=== PATIENT | female | born 1970 | race Two or more races ===

== ENCOUNTER 2017-01-15 08:16 | Emergency (ER) | payer OTHER ==
[~2017-01-15] VITALS: Ht 157.5 cm; Wt 89.4 kg
[~2017-01-15 08:16] MED LIST: AMLO5TAB2 PO; BUTA1CAP29 PO; CETI10CA PO; CYCL10TA2 PO; DOXY100T PO; FLUT1DIS3 IH; HYDR-971 PO; LORA0.5T96 PO; METH4TAB PO; NAPR500T3 PO; NAPR500T8 PO; NAPR550T PO; OMEP20CA5 PO; PROAIR HFA8.5 GM IH
[2017-01-15 08:25] VITALS: BP 150/83
--- NOTE | 2017-01-15 08:40 | RAD ---
Left wrist, 3 views, 01/15/2017: History: Fall, pain No fracture or dislocation is identified. There is a cystic area in the lunate bone presumably on a degenerative basis. Mild subcutaneous edema is noted. IMPRESSION: No acute bony abnormality is detected. Left hand, 3 views, 01/15/2017: No fracture or dislocation is identified. There are mild degenerative changes at scattered interphalangeal joints and the first CMC joint.
--- NOTE | 2017-01-15 08:55 | PHYS DOC ---
Past Medical History Past Medical History: Asthma, COPD, GERD Additional Past Medical Histor: hepatitis c, PTSD Past Surgical History: Additional Past Surgical Histo: 5 c-sections, right rotator cuff repair Alcohol Use: None Drug Use: None Adult General Chief Complaint Chief Complaint: WRIST PAIN [facility] HPI Patient is a 46 year old female presents emergency department stating that she was trying to hang pictures and her new house last night when she's felt. She's not sure if she hit her arm on the counter. She is stating that she is having left wrist pain and hand pain. She has decreased range of motion of the wrist. She has good bilingual loan processor noted with the left hand. Peripheral pulses are 2+ cap refill brisk less than 2 seconds. Patient states she has not taken anything for pain and discomfort as it was not hurting until this morning. There does not appear to be any deformity no discoloration noted there does appear to be swelling along the lateral part of the wrist. Patient is right-hand dominant. Review of Systems Review of Systems Constitutional: Denies fever or chills [] Eyes: Denies change in visual acuity, redness, or eye pain [] HENT: Denies nasal congestion or sore throat [] Respiratory: Denies cough or shortness of breath [] Cardiovascular: No additional information not addressed in HPI [] GI: Denies abdominal pain, nausea, vomiting, bloody stools or diarrhea [] : Denies dysuria or hematuria [] Musculoskeletal: Denies back pain. C/o Left wrist pain Integument: Denies rash or skin lesions [] Neurologic: Denies headache, focal weakness or sensory changes [] Allergies Allergies Allergies Coded Allergies Type Severity Reaction Last Updated Verified aspirin Allergy Intermediate itching, hives 09/24/16 No Physical Exam Physical Exam Constitutional: Well developed, well nourished, no acute distress, non-toxic appearance. [] HENT: Normocephalic, atraumatic, bilateral external ears normal, oropharynx moist, no oral exudates, nose normal. [] Eyes: PERRLA, EOMI, conjunctiva normal, no discharge. [] Neck: Normal range of motion, no tenderness, supple, no stridor. [] Cardiovascular:Heart rate regular rhythm, no murmur [] Lungs & Thorax: Bilateral breath sounds clear to auscultation [] Skin: Warm, dry, no erythema, no rash. [] Back: No tenderness Extremities: Left wrist and hand tenderness, no cyanosis, no clubbing, ROM intact, no edema. Peripheral pulses 2+, cap refill brisk less than 2 seconds. Patient with equal bilingual loan processor noted bilaterally. Patient with decreased range of motion of the left wrist. Does appear to have some swelling noted along the lateral part of the wrist. No discoloration, no deformity noted. Neurologic: Alert and oriented X 3, normal motor function, normal sensory function, no focal deficits noted. [] Psychologic: Affect normal, judgement normal, mood normal. [] Current Patient Data Vital Signs Vital Signs Date Time Temp Pulse Resp B/P Pulse Ox O2 Delivery O2 Flow Rate FiO2 01/15/17 08:25 98.5 79 20 97 Room Air 98.5 EKG EKG [] Radiology/Procedures Radiology/Procedures [facility] [address] [place] [address] IMAGING REPORT Signed PATIENT: WILDA EDMONDS ACCOUNT: [id number] : 1970 LOCATION: ER AGE: 46 SEX: F EXAM [id number] STATUS: PRE ER ORD. PHYSICIAN: MARY RUBIN NP REASON: hand and wrist pain after fall yesterday PROCEDURE: HAND LEFT 3V; WRIST 3V LEFT Left wrist, 3 views, 01/15/2017: History: Fall, pain No fracture or dislocation is identified. There is a cystic area in the lunate bone presumably on a degenerative basis. Mild subcutaneous edema is noted. IMPRESSION: No acute bony abnormality is detected. Left hand, 3 views, 01/15/2017: No fracture or dislocation is identified. There are mild degenerative changes at scattered interphalangeal joints and the first CMC joint. IMPRESSION: No acute bony abnormality is detected. DICTATED and SIGNED BY: MARVA SILVA MD DATE: 01/15/17 0835 CC: MARY RUBIN NP; CATE MORRISON [] Course & Med Decision Making Course & Med Decision Making Pertinent Labs and Imaging studies reviewed. (See chart for details) X-rays were negative for any fractures or bony abnormalities per radiology. Patient will placed in an ulnar gutter splint for comfort. With recommendations to follow-up with orthopedic. Patient is instructed to use ice packs on 20 minutes off 20 minutes several times a day. Tylenol and ibuprofen for pain and discomfort. Patient was also instructed to use elevation. Patient agrees with discharge instructions treatment regimens and follow-up recommendations. Since symptoms to return back to emergency department been provided. [] Dragon Disclaimer Dragon Disclaimer This electronic medical record was generated, in whole or in part, using a voice recognition dictation system. Departure Departure Impression: Primary Impression: Left wrist pain Additional Impression: Left hand pain Disposition: HOME, SELF-CARE Condition: STABLE Referrals: CATE MORRISON (PCP) CLINTON COVINGTON II, MD Patient Instructions: Sprain, [id number], Wrist Splint, [id number] Additional Instructions: Your x-rays were negative for any bony abnormalities. Keep the splint in place. Keep the splint clean and dry. Ice packs on 20 minutes off 20 minutes several times a day. Elevation as much as possible. Tylenol or ibuprofen for pain and discomfort. Follow-up with orthopedic in the next week. Return back to emergency prior signs symptoms become worse. Splinting Splinting : Location: left ulna gutter Hand-Made Type: orthoglass Splint: ulnar Pre-Proc Neuro Vasc Exam: normal Post-Proc Neuro Vasc Exam: normal Problem Qualifiers MARY RUBIN NP Jan 15, 2017 08:55
== END 2017-01-15 09:13 | disposition home or self-care (01) ==
LOC: ER 08:16
DX: M25.532 Pain in left wrist (principal); M79.642 Pain in left hand; J44.9 Chronic obstructive pulmonary disease, unspecified; J45.909 Unspecified asthma, uncomplicated; Z88.6 Allergy status to analgesic agent; X58.XXXA Exposure to other specified factors, initial encounter; Y93.89 Activity, other specified; Y92.89 Other specified places as the place of occurrence of the external cause; Y99.2 Volunteer activity
CPT/HCPCS: 29125; 73110; 73130; 99284-25

== ENCOUNTER 2017-03-11 17:55 | Emergency (ER) | payer OTHER ==
[~2017-03-11] VITALS: Ht 157.5 cm; Wt 83.9 kg
[2017-03-11 18:15] VITALS: BP 130/68
[2017-03-11] MEDS ORDERED: METO10TA81 PO (18:28)
--- NOTE | 2017-03-11 18:28 | PHYS DOC ---
Past Medical History Past Medical History: Asthma, COPD, GERD, Hypertension, Hepatitis, Migraines Additional Past Medical Histor: HEP C, PTSD Past Surgical History: Additional Past Surgical Histo: R rotator cuff Alcohol Use: None Drug Use: None Adult General Chief Complaint Chief Complaint: HEADACHE HPI HPI Patient is a 46 year old female presents emergency department stating that she has a migraine headache that started the spotting. She states that she has pressure behind her right eye and has photophobia. She states that she normally has the pressure behind the left eye but today is behind the right. She has not taken anything for the pain and discomfort. She does state she is slightly nauseated but has not vomited. She denies any neurological issues. She does not have a neurologist which she states follows up with. Review of Systems Review of Systems Constitutional: Denies fever or chills [] Eyes: Denies change in visual acuity, redness, or eye pain [] HENT: Denies nasal congestion or sore throat [] Respiratory: Denies cough or shortness of breath [] Cardiovascular: No additional information not addressed in HPI [] GI: Denies abdominal pain, nausea, vomiting, bloody stools or diarrhea [] : Denies dysuria or hematuria [] Musculoskeletal: Denies back pain or joint pain [] Integument: Denies rash or skin lesions [] Neurologic: headache, denies focal weakness or sensory changes [] Current Medications Current Medications Current Medications Medications (Trade) Dose Ordered Sig/Grazyna Start Time Stop Time Status Last Admin Dose Admin Diphenhydramine HCl (Benadryl) 25 mg 1X ONCE 03/11/17 18:30 03/11/17 18:31 DC 03/11/17 18:26 25 MG Ketorolac Tromethamine (Toradol) 10 mg 1X ONCE 03/11/17 18:30 03/11/17 18:31 DC 03/11/17 18:26 10 MG Metoclopramide HCl (Reglan) 10 mg 1X ONCE 03/11/17 18:30 03/11/17 18:31 DC 03/11/17 18:26 10 MG Allergies Allergies Allergies Coded Allergies Type Severity Reaction Last Updated Verified aspirin Allergy Intermediate itching, hives 09/24/16 No Physical Exam Physical Exam Constitutional: Well developed, well nourished, no acute distress, non-toxic appearance. [] HENT: Normocephalic, atraumatic, bilateral external ears normal, oropharynx moist, no oral exudates, nose normal. Bilateral tympanic membranes appear to be normal. Eyes: PERRLA, EOMI, conjunctiva normal, no discharge. [] Neck: Normal range of motion, no tenderness, supple, no stridor. [] Cardiovascular:Heart rate regular rhythm, no murmur [] Lungs & Thorax: Bilateral breath sounds clear to auscultation [] Skin: Warm, dry, no erythema, no rash. [] Back: No tenderness Extremities: No tenderness, no cyanosis, no clubbing, ROM intact, no edema. [] Neurologic: Alert and oriented X 3, normal motor function, normal sensory function, no focal deficits noted. Cranial nerves II through XII intact. Psychologic: Affect normal, judgement normal, mood normal. [] Current Patient Data Vital Signs Vital Signs Date Time Temp Pulse Resp B/P Pulse Ox O2 Delivery O2 Flow Rate FiO2 03/11/17 18:15 97.9 77 18 99 Room Air 97.9 EKG EKG [] Radiology/Procedures Radiology/Procedures [] Course & Med Decision Making Course & Med Decision Making Pertinent Labs and Imaging studies reviewed. (See chart for details) She'll be provided with Toradol here in the emergency department, Suni and Ovidio. 1842 Headache has improved. Patient will be discharged home in stable condition with recommendations to follow-up with her primary care physician in the next 3- 5 days. Since symptoms to return back to emergency department as been provided. Also recommended resting in a quiet dark environment. No TV no cell phone no laptop computers or any type of electronic devices she has a headache. Patient will be discharged home in stable condition patient agrees with discharge instructions treatment regimens and follow-up recommendations. Dragon Disclaimer Dragon Disclaimer This electronic medical record was generated, in whole or in part, using a voice recognition dictation system. Departure Departure Impression: Primary Impression: Headache, migraine Disposition: HOME, SELF-CARE Condition: STABLE Referrals: CATE MORRISON (PCP) Patient Instructions: Migraine Headache, [id number] Additional Instructions: Your being treated for migraine headache. Home to rest in quiet dark environment. Avoid using any type of electronic devices such as watching TV using any cell phone text messaging or any laptops or computer devices. You may take ibuprofen at home for pain and discomfort as well as Benadryl to help with her headache. Medications as prescribed. Follow-up to primary care physician in the next 3-5 days. Return back to emergency prior signs and symptoms of become worse. Scripts Metoclopramide Hcl (Reglan)10 Mg Tablet1 Tab PO TID PRN HEADACHE #30 TAB Take as needed for headahce and nausea and vomiting Prov:MARY RUBIN APRN 03/11/17 MARY RUBIN APRN Mar 11, 2017 18:28
[2017-03-11] MEDS ORDERED: METOCLOPRAMIDE 10 MG TABLET. PO ONE (18:30)
[2017-03-11] MEDS ORDERED: diphenhydrAMINE HCL 25 MG CAPSULE PO ONE (18:30)
[2017-03-11] MEDS ORDERED: KETOROLAC TROMETHAMINE 10 MG TABLET PO ONE (18:30)
== END 2017-03-11 18:41 | disposition home or self-care (01) ==
LOC: ER 17:55
DX: G43.909 Migraine, unspecified, not intractable, without status migrainosus (principal); I10 Essential (primary) hypertension; F43.10 Post-traumatic stress disorder, unspecified; K21.9 Gastro-esophageal reflux disease without esophagitis; J44.9 Chronic obstructive pulmonary disease, unspecified; Z86.19 Personal history of other infectious and parasitic diseases; Z88.6 Allergy status to analgesic agent
CPT/HCPCS: 99284; J8597; Q0163

== ENCOUNTER 2017-03-25 17:15 | Emergency (ER) | payer OTHER ==
[~2017-03-25] VITALS: Ht 157.5 cm; Wt 84.8 kg
[~2017-03-25 17:15] MED LIST changes: +METO10TA81 PO
[2017-03-25 17:28] VITALS: BP 157/88
[2017-03-25] MEDS ORDERED: AMOX1TAB61 PO (18:19)
--- NOTE | 2017-03-25 18:19 | PHYS DOC ---
Past Medical History Past Medical History: Asthma, COPD, Depression, GERD, Hypertension, Hepatitis, Migraines Additional Past Medical Histor: HEP C, PTSD Past Surgical History: Additional Past Surgical Histo: R rotator cuff Alcohol Use: None Drug Use: None Adult General Chief Complaint Chief Complaint: SORE THROAT HPI HPI Patient is a 46 year old female presents emergency department stating that she' s been having a cough congestion sore throat with sinus pressure and discomfort for the last 3-4 days. She denies the cough being productive. She states that it 's a dry cough. She denies any shortness of air difficulty breathing. Denies any fever, chills or nausea vomiting. Review of Systems Review of Systems Constitutional: Denies fever or chills [] Eyes: Denies change in visual acuity, redness, or eye pain [] HENT: nasal congestion and sore throat [] Respiratory: cough denies shortness of breath [] Cardiovascular: No additional information not addressed in HPI [] GI: Denies abdominal pain, nausea, vomiting, bloody stools or diarrhea [] : Denies dysuria or hematuria [] Musculoskeletal: Denies back pain or joint pain [] Integument: Denies rash or skin lesions [] Neurologic: Denies headache, focal weakness or sensory changes [] Endocrine: Denies polyuria or polydipsia [] Allergies Allergies Allergies Coded Allergies Type Severity Reaction Last Updated Verified aspirin Allergy Intermediate itching, hives 09/24/16 No Physical Exam Physical Exam Constitutional: Well developed, well nourished, no acute distress, non-toxic appearance. [] HENT: Normocephalic, atraumatic, bilateral external ears normal, oropharynx moist, no oral exudates, nose normal. Bilateral tympanic membranes appear to be normal. Patient with frontal and maxillary sinus pressure noted. Eyes: PERRLA, EOMI, conjunctiva normal, no discharge. [] Neck: Normal range of motion, no tenderness, supple, no stridor. [] Cardiovascular:Heart rate regular rhythm, no murmur [] Lungs & Thorax: Bilateral breath sounds clear to auscultation [] Skin: Warm, dry, no erythema, no rash. [] Back: No tenderness Extremities: No tenderness, no cyanosis, no clubbing, ROM intact, no edema. [] Neurologic: Alert and oriented X 3, normal motor function, normal sensory function, no focal deficits noted. [] Psychologic: Affect normal, judgement normal, mood normal. [] Current Patient Data Vital Signs Vital Signs Date Time Temp Pulse Resp B/P (MAP) Pulse Ox O2 Delivery O2 Flow Rate FiO2 03/25/17 17:28 98.3 71 18 98 Room Air 98.3 EKG EKG [] Radiology/Procedures Radiology/Procedures [] Course & Med Decision Making Course & Med Decision Making Pertinent Labs and Imaging studies reviewed. (See chart for details) Chest x-ray was negative for any abnormalities per Dr. Nunn. Patient will be placed on Augmentin as she has sinus pressure and discomfort. Recommended Mucinex DM for the cough and congestion. Patient may also take Coricidin HBP. Recommended plenty of fluids. Patient will be discharged home in stable condition signs symptoms to return back to emergency department as been provided. [] Dragon Disclaimer Dragon Disclaimer This electronic medical record was generated, in whole or in part, using a voice recognition dictation system. Departure Departure Impression: Primary Impression: Sinusitis Disposition: 01 HOME, SELF-CARE Condition: STABLE Referrals: CATE MORRISON (PCP) Patient Instructions: Sinusitis, [id number] Additional Instructions: Activity as tolerated. Medication as prescribed Mucinex DM will help with your cough and congestion chart by funnel coater. Coricidin HBP as directed by funnel coater. Drink plenty of fluids. Follow-up the primary care physician in next 3-5 days. Return back to emergency prior signs symptoms of become worse. Scripts Amoxicillin/Potassium Clav (AUGMENTIN 875-125 TABLET) 1 Each Tablet 1 TAB PO BID, #20 TAB Prov: MARY RUBNI APRN 03/25/17 MARY RUBIN PRECIPITATION EQUIPMENT TENDER March 25, 2017 18:19
--- NOTE | 2017-03-26 07:35 | RAD ---
Exam performed: 2 views of the chest. Indication: cough congestion Date of Service:03/25/2017 7:39 PM . Comparison : 2 views chest from 11/28/16 Findings: PA and lateral radiographs of the chest reveal a normal cardiomediastinal contour. The lungs are clear. No pleural fluid is seen. The visualized osseous structures are unremarkable. Impression: Radiographically normal chest.
[2017-03-26 10:00] LABS: NEGATIVE OBC STREP NEG; POSITIVE OBC STREP POS
== END 2017-03-25 18:30 | disposition home or self-care (01) ==
LOC: ER 17:15
DX: J32.1 Chronic frontal sinusitis (principal); J32.0 Chronic maxillary sinusitis; J44.9 Chronic obstructive pulmonary disease, unspecified; F32.9 Major depressive disorder, single episode, unspecified; K21.9 Gastro-esophageal reflux disease without esophagitis; I10 Essential (primary) hypertension; G43.909 Migraine, unspecified, not intractable, without status migrainosus; F43.10 Post-traumatic stress disorder, unspecified; Z86.19 Personal history of other infectious and parasitic diseases; Z88.6 Allergy status to analgesic agent
CPT/HCPCS: 71020; 87070; 87880; 99285-25

== ENCOUNTER 2017-07-07 21:31 | Emergency (ER) | payer OTHER ==
[~2017-07-07] VITALS: Ht 157.5 cm; Wt 85.7 kg
[~2017-07-07 21:31] MED LIST changes: +AMOX1TAB61 PO
[2017-07-07 22:08] VITALS: BP 151/80
[2017-07-07] MEDS ORDERED: DICL50TA4 PO (22:27)
--- NOTE | 2017-07-07 22:28 | PHYS DOC ---
Past Medical History Past Medical History: Asthma, COPD, Depression, GERD, Hypertension, Hepatitis, Migraines Additional Past Medical Histor: HEP C, PTSD Past Surgical History: Additional Past Surgical Histo: R rotator cuff Alcohol Use: None Drug Use: None Adult General Chief Complaint Chief Complaint: HAND PROBLEM HPI HPI Patient is a 47 year old female with a history of hypertension, COPD, asthma, who presents today with mild left hand pain that began yesterday. Patient states her left hand got smashed in a sliding door yesterday. Review of Systems Review of Systems Constitutional: Denies fever or chills [] Musculoskeletal: Left hand pain Integument: Denies rash or skin lesions [] Neurologic: Denies headache, focal weakness or sensory changes [] Allergies Allergies Allergies Coded Allergies Type Severity Reaction Last Updated Verified aspirin Allergy Intermediate itching, hives 09/24/16 No Physical Exam Physical Exam Constitutional: Well developed, well nourished, no acute distress, non-toxic appearance. [] Skin: Warm, dry, no erythema, no rash. [] Back: No tenderness, no CVA tenderness. [] Extremities: Left hand with small amount of soft tissue swelling on the middle finger and index finger proximal phalanx with tenderness to the areas as well. Full range of motion to the left hand and fingers. +2 left radial pulse. Cap refill less than 2 seconds the left fingers. Sensation intact to the left upper extremity. Adequate radial medial and ulnar sensation to the left hand. Neurologic: Alert and oriented X 3, normal motor function, normal sensory function, no focal deficits noted. [] Psychologic: Affect normal, judgement normal, mood normal. [] Current Patient Data Vital Signs Vital Signs Date Time Temp Pulse Resp B/P (MAP) Pulse Ox O2 Delivery O2 Flow Rate FiO2 07/07/17 22:08 97.6 73 18 100 Room Air 97.6 EKG EKG [] Radiology/Procedures Radiology/Procedures [] Course & Med Decision Making Course & Med Decision Making Pertinent Labs and Imaging studies reviewed. (See chart for details) Patient has left hand contusion after her left hand got smashed in a sliding door. Left hand x-rays interpreted by Dr. Hanks are negative for any acute findings. [place] wrap applied to the left hand by me, neurovascular exam done by me is normal. Ice elevation encouraged. Follow-up with Ortho in one week if pain continues. Dragon Disclaimer Dragon Disclaimer This electronic medical record was generated, in whole or in part, using a voice recognition dictation system. Departure Departure Impression: Primary Impression: Contusion of left hand Disposition: HOME, SELF-CARE Condition: STABLE Referrals: CATE MORRISON (PCP) DELMY LOUIE MD follow up in one week Patient Instructions: Contusion, [id number] Additional Instructions: You were seen for left hand contusion. Ice elevate the extremity. Follow-up with the provided orthopedic doctor or your own doctor in 1-2 weeks. Scripts Diclofenac Sodium (DICLOFENAC SODIUM) 50 Mg Tablet.dr 1 TAB PO BID, #30 TAB 0 Refills Prov: ZHANE ARCHER APRN 07/07/17 Problem Qualifiers Primary Impression: Contusion of left hand Encounter type: initial encounter Qualified Codes: S60.222A - Contusion of left hand, initial encounter ZHANE ARCHER APRN Jul 07, 2017 22:27
--- NOTE | 2017-07-08 07:39 | RAD ---
Exam performed:Left hand 3 views. Indication: Injury third and fourth digits. Date of Service:07/07/17 Comparison: X-ray left hand from 01/15/17 Discussion: PA, oblique lateral radiographs of the hand reveal the osseous structures to be intact and well aligned. The joint spaces are well-preserved. The articular margins are smooth. There is mild soft tissue swelling, no definite foreign bodies detected. Impression: Mild soft tissue swelling without underlying bony abnormality..
== END 2017-07-07 22:49 | disposition home or self-care (01) ==
LOC: ER 21:31
DX: S60.222A Contusion of left hand, initial encounter (principal); F43.10 Post-traumatic stress disorder, unspecified; I10 Essential (primary) hypertension; J44.9 Chronic obstructive pulmonary disease, unspecified; K21.9 Gastro-esophageal reflux disease without esophagitis; G43.909 Migraine, unspecified, not intractable, without status migrainosus; Z86.19 Personal history of other infectious and parasitic diseases; Z88.6 Allergy status to analgesic agent; X58.XXXA Exposure to other specified factors, initial encounter; Y93.89 Activity, other specified; Y99.8 Other external cause status; Y92.89 Other specified places as the place of occurrence of the external cause
CPT/HCPCS: 73130; 99284

== ENCOUNTER 2017-11-19 13:12 | Emergency (ER) | payer OTHER | END 2017-11-19 13:51 | disposition home or self-care (01) | LOC: ER 13:12 | DX: J40 Bronchitis, not specified as acute or chronic (principal); I10 Essential (primary) hypertension; J44.9 Chronic obstructive pulmonary disease, unspecified; K21.9 Gastro-esophageal reflux disease without esophagitis; F43.10 Post-traumatic stress disorder, unspecified; G43.909 Migraine, unspecified, not intractable, without status migrainosus; Z88.6 Allergy status to analgesic agent | CPT/HCPCS: 99283 ==

== ENCOUNTER 2018-01-02 12:48 | Emergency (ER) | payer OTHER ==
[2018-01-02] MEDS: diphenhydrAMINE 50 MG/ML VIAL IVP ×2 (13:58)
[2018-01-02] MEDS: PROMETHAZINE 25 MG in IV NORMAL SALINE 50ML 50 ML IV (13:58)
== END 2018-01-02 15:30 | disposition home or self-care (01) ==
LOC: ER 12:48
DX: G43.909 Migraine, unspecified, not intractable, without status migrainosus (principal); J44.9 Chronic obstructive pulmonary disease, unspecified; K21.9 Gastro-esophageal reflux disease without esophagitis; I10 Essential (primary) hypertension; F43.10 Post-traumatic stress disorder, unspecified; Z88.6 Allergy status to analgesic agent
CPT/HCPCS: 96365; 96375; 99284-25; J1200; J2550

== ENCOUNTER 2018-01-17 12:50 | Emergency (ER) | payer OTHER ==
[2018-01-17] MEDS: predniSONE 10 MG TABLET PO (13:49)
[2018-01-17] MEDS: IPRATRPIUM/ALBUTEROL 0.5/2.5MG 3 ML NEBU. NEB (13:57)
== END 2018-01-17 14:35 | disposition home or self-care (01) ==
LOC: ER 12:50
DX: J45.901 Unspecified asthma with (acute) exacerbation (principal); J44.9 Chronic obstructive pulmonary disease, unspecified; K21.9 Gastro-esophageal reflux disease without esophagitis; I10 Essential (primary) hypertension; F43.10 Post-traumatic stress disorder, unspecified; G43.909 Migraine, unspecified, not intractable, without status migrainosus; Z88.6 Allergy status to analgesic agent
CPT/HCPCS: 94640; 99283; J7512; J7620

== ENCOUNTER 2018-04-28 06:10 | Emergency (ER) | payer OTHER ==
[2018-04-28] MEDS ORDERED: KETOROLAC 30 MG/ML INJ. IV (07:00)
[2018-04-28] MEDS ORDERED: METOCLOPRAMIDE HCL 10 MG/2 ML VIAL. IV (07:00)
[2018-04-28] MEDS ORDERED: IV NORMAL SALINE 1000ML BAG 1,000 ML IV (07:00)
[2018-04-28] MEDS ORDERED: diphenhydrAMINE 50 MG/ML VIAL IVP (07:00)
[2018-04-28] MEDS: ACETAMINOPHEN 500 MG TABLET PO (07:27)
[2018-04-28] MEDS: SUMAtriptan SUCCINATE 25 MG TABLET PO (07:27)
[2018-04-28] MEDS: METOCLOPRAMIDE 10 MG TABLET. PO (07:28)
[2018-04-28] MEDS: diphenhydrAMINE HCL 25 MG CAPSULE PO (07:28)
[2018-04-28] MEDS: KETOROLAC 60 MG/2 ML INJ. IM (07:29)
== END 2018-04-28 09:06 | disposition home or self-care (01) ==
LOC: ER 06:10
DX: S90.411A Abrasion, right great toe, initial encounter (principal); L08.9 Local infection of the skin and subcutaneous tissue, unspecified; G43.909 Migraine, unspecified, not intractable, without status migrainosus; X58.XXXA Exposure to other specified factors, initial encounter; Y93.89 Activity, other specified; Y99.8 Other external cause status; Y92.89 Other specified places as the place of occurrence of the external cause
CPT/HCPCS: 96372; 99284-25; J1885; J8597; Q0163

== ENCOUNTER 2018-05-22 18:31 | Emergency (ER) | payer OTHER ==
[2018-05-22] MEDS: IPRATRPIUM/ALBUTEROL 0.5/2.5MG 3 ML NEBU. NEB (19:27)
[2018-05-22] MEDS: predniSONE 20 MG TABLET PO (19:50)
== END 2018-05-22 19:50 | disposition home or self-care (01) ==
LOC: ER 19:50
DX: J45.901 Unspecified asthma with (acute) exacerbation (principal); F32.9 Major depressive disorder, single episode, unspecified; F41.9 Anxiety disorder, unspecified; Z88.6 Allergy status to analgesic agent
CPT/HCPCS: 94640; 99283-25; J7620

== ENCOUNTER 2018-06-13 09:11 | Emergency (ER) | payer OTHER ==
[2018-06-13] MEDS: IV NORMAL SALINE 1000ML BAG 1,000 ML IV (10:31)
[2018-06-13] MEDS: diphenhydrAMINE 50 MG/ML VIAL IVP (10:33)
[2018-06-13] MEDS: KETOROLAC 30 MG/ML INJ. IV (10:35)
[2018-06-13] MEDS: METOCLOPRAMIDE HCL 10 MG/2 ML VIAL. IV (10:37)
[2018-06-13 10:43] LABS: ADD MAN DIFF? NO
[2018-06-13 10:55] LABS: ANION GAP 9 (6-14); BLOOD UREA NITROGEN 13 mg/dL (7-20); BUN/CREATININE RATIO 22 (6-20); CALCIUM 8.9 mg/dL (8.5-10.1); CARBON DIOXIDE 24 mmol/L (21-32); CHLORIDE 102 mmol/L (98-107); CREATININE 0.6 mg/dL (0.6-1.0); GFR 105.8; GLUCOSE 84 mg/dL (70-99); SODIUM 135 mmol/L (136-145)
[2018-06-13 11:01] LABS: ALBUMIN 3.5 g/dL (3.4-5.0); ALBUMIN/GLOBULIN RATIO 0.9 (1.0-1.7); ALK PHOS 86 U/L (46-116); ALT (SGPT) 30 U/L (14-59); AST (SGOT) 29 U/L (15-37); TOTAL BILIRUBIN 0.5 mg/dL (0.2-1.0); TOTAL PROTEIN 7.3 g/dL (6.4-8.2)
[2018-06-13 11:10] LABS: BASO % 1 % (0-3); EOS # 0.4 x10^3/uL (0.0-0.7); EOS % 5 % (0-3); HEMATOCRIT 33.8 % (36.0-47.0); HEMOGLOBIN 10.9 g/dL (12.0-15.5); LYMPH # 1.5 x10^3/uL (1.0-4.8); LYMPH % 22 % (24-48); MEAN CORPUSCULAR HEMOGLOBIN 23 pg (25-35); MEAN CORPUSCULAR HGB CONC 32 g/dL (31-37); MEAN CORPUSCULAR VOLUME 72 fL (79-100); MONO # 0.5 x10^3/uL (0.0-1.1); MONO % 8 % (0-9); NEUT # 4.4 x10^3uL (1.8-7.7); NEUT % 64 % (31-73); PLATELET COUNT 296 x10^3/uL (140-400); RED BLOOD COUNT 4.72 x10^6/uL (3.50-5.40); RED CELL DISTRIBUTION WIDTH 19.2 % (11.5-14.5); WHITE BLOOD COUNT 6.8 x10^3/uL (4.0-11.0)
== END 2018-06-13 12:15 | disposition home or self-care (01) ==
LOC: ER 12:15
DX: G43.909 Migraine, unspecified, not intractable, without status migrainosus (principal); F41.9 Anxiety disorder, unspecified; J44.9 Chronic obstructive pulmonary disease, unspecified; F32.9 Major depressive disorder, single episode, unspecified; Z88.6 Allergy status to analgesic agent
CPT/HCPCS: 36415; 80053; 85025; 96374; 96375; 99284-25; J1200; J1885; J2765; J7030

== ENCOUNTER 2018-08-08 19:47 | Emergency (ER) | payer OTHER ==
[~2018-08-08] VITALS: Ht 157.5 cm; Wt 74.8 kg
[~2018-08-08 19:47] MED LIST changes: +ALBU2.5V14 NEB; -AMLO5TAB2 PO; +AMLO5TAB7 PO; +BENZ100C PO; +BUTA1CAP57 PO; +CEPH-264 PO; +CLAR500T PO; +DICL50TA4 PO; +NAPR-514 PO; +NAPR-682 PO; -NAPR500T3 PO; -NAPR550T PO; +PRED20TA PO; +PRED50TA PO; +PROAIR HFA8.5 GM INH; +PROAIR RESPICL90 MCG IH; +SULF1TAB24 PO
[2018-08-08] MEDS ORDERED: KETOROLAC 30 MG/ML VIAL. IM ONE (20:30)
[2018-08-08] MEDS ORDERED: PROMETHAZINE IM 25 MG/ML VIAL IM ONE (20:30)
--- NOTE | 2018-08-08 20:42 | PHYS DOC ---
Past Medical History Past Medical History: Anxiety, Asthma, COPD, Depression, Migraines Additional Past Medical Histor: HEP C, PTSD Past Surgical History: Additional Past Surgical Histo: R ROTATOR CUFF SX Alcohol Use: None Drug Use: None Adult General Chief Complaint Chief Complaint: HEADACHE HPI HPI Patient is a 48 year old F who reports to ER with complaints of migraine headache. She states this headache is similar to her prior migraines and is associated with nausea, photophobia and dizziness. She is ambulatory in to the ER and denies any weakness in her arms or legs. Review of Systems Review of Systems Constitutional: Denies fever or chills Eyes: Denies change in visual acuity, redness, or eye pain. Reports photophobia. HENT: Denies nasal congestion or sore throat Respiratory: Denies cough or shortness of breath Cardiovascular: Denies chest pain. GI: Denies abdominal pain, vomiting, bloody stools or diarrhea. Reports nausea. Musculoskeletal: Denies back pain or joint pain Integument: Denies rash or skin lesions Neurologic: Denies headache, focal weakness or sensory changes. Endocrine: Denies polyuria or polydipsia All other systems were reviewed and found to be within normal limits, except as documented in this note. Current Medications Current Medications Current Medications Medications (Trade) Dose Ordered Sig/Grazyna Start Time Stop Time Status Last Admin Dose Admin Acetaminophen/ Butalbital/ Caffeine (Fioricet) 2 tab PRN Q6HRS PRN 08/08/18 21:45 08/08/18 21:56 2 TAB Ketorolac Tromethamine (Toradol 30mg Vial) 30 mg 1X ONCE 08/08/18 20:30 08/08/18 20:45 DC 08/08/18 20:58 30 MG Promethazine HCl (Phenergan Im) 25 mg 1X ONCE 08/08/18 20:30 08/08/18 20:45 DC 08/08/18 20:57 25 MG Allergies Allergies Allergies Coded Allergies Type Severity Reaction Last Updated Verified aspirin Allergy Intermediate itching, hives 09/24/16 No Physical Exam Physical Exam Constitutional: Well developed, well nourished, no acute distress, non-toxic appearance. Appears uncomfortable. HENT: Normocephalic, atraumatic, bilateral external ears normal, oropharynx moist, no oral exudates, nose normal. Eyes: PERRLA, EOMI, conjunctiva normal, no discharge. Positive photophobia bilaterally. Neck: Normal range of motion, no tenderness, supple, no stridor. No meningismus. Cardiovascular:Heart rate regular rhythm, no murmur Lungs & Thorax: Bilateral breath sounds clear to auscultation Abdomen: Bowel sounds normal, soft, no tenderness, no masses, no pulsatile masses. Skin: Warm, dry, no erythema, no rash. Back: No tenderness, no CVA tenderness. Extremities: No tenderness, no cyanosis, no clubbing, ROM intact, no edema. Neurologic: Alert and oriented X 3, normal motor function, normal sensory function, no focal deficits noted. Ambulatory without distress. No focal neuro deficits. Psychologic: Affect normal, judgement normal, mood normal. Current Patient Data Vital Signs Vital Signs Date Time Temp Pulse Resp B/P (MAP) Pulse Ox O2 Delivery O2 Flow Rate FiO2 08/08/18 21:56 76 20 08/08/18 20:10 98.0 175/80 (111) 99 Room Air 98.0 EKG EKG [] Radiology/Procedures Radiology/Procedures [] Course & Med Decision Making Course & Med Decision Making Pertinent Labs and Imaging studies reviewed. (See chart for details) Pt feeling better after IM phenergan, IM toradol and 2 PO Fioricet. Discussed rest and follow up with her PCP or neurology. Pt to return if symptoms worsen at anytime. Dragon Disclaimer Dragon Disclaimer This electronic medical record was generated, in whole or in part, using a voice recognition dictation system. Departure Departure Impression: Primary Impression: Headache, migraine Disposition: 01 HOME, SELF-CARE Condition: IMPROVED Referrals: CATE MORRISON (PCP) Patient Instructions: Migraine Headache, [id number] Additional Instructions: Rest, push fluids and follow up with your primary care doctor or neurologist. Scripts Promethazine HCl (Phenergan) 25 Mg Supp.rect 25 MG PO Q12HR for 5 Days, #10 SUPP.RECT Prov: GEORGIE JULIAN 08/08/18 Butalbital/Aspirin/Caffeine (FIORINAL 50-325-40 MG CAPSULE) 1 Each Capsule 1 EACH PO Q6-8HRS PRN for HEADACHE for 7 Days, #20 CAP Prov: GEORGIE JULIAN 08/08/18 Attending Signature Attending Signature I have reviewed the PA/CAR HOPPER's note and plan of care. I was available for consultation as needed during the patient's visit in the emergency department. I agree with the clinical impression, plan, and disposition. GEORGIE JULIAN Aug 08, 2018 20:42 MATHEW LOPEZ DO Aug 09, 2018 03:57
[2018-08-08] MEDS ORDERED: BUTA1CAP31 PO (21:10)
[2018-08-08] MEDS ORDERED: PROM25SU32 PO (21:39)
[2018-08-08] MEDS ORDERED: BUTALB/APAP/CAFEIN 50/325/40MG TABLET. PO PRN (21:45)
[2018-08-08 21:56] VITALS: BP 142/86
== END 2018-08-08 21:56 | disposition home or self-care (01) ==
LOC: ER 19:47
DX: G43.909 Migraine, unspecified, not intractable, without status migrainosus (principal); J44.9 Chronic obstructive pulmonary disease, unspecified; F43.10 Post-traumatic stress disorder, unspecified; F41.9 Anxiety disorder, unspecified; Z88.6 Allergy status to analgesic agent
CPT/HCPCS: 96372; 99284; J1885; J2550

== ENCOUNTER 2018-08-19 14:40 | Emergency (ER) | payer OTHER ==
[~2018-08-19] VITALS: Ht 160 cm; Wt 74.8 kg
[~2018-08-19 14:40] MED LIST changes: +BUTA1CAP31 PO; +PROM25SU32 PO
[2018-08-19 14:57] VITALS: BP 171/79
[2018-08-19] MEDS ORDERED: DEXAMETHASONE SOD PHOS 20 MG/5 ML VIAL. PO ONE (15:00)
[2018-08-19] MEDS ORDERED: ALBUTEROL SULFATE 2.5 MG/3 ML NEBU. NEB ONE (15:00)
[2018-08-19] MEDS ORDERED: ALBU2.5V5 NEB (15:57)
[2018-08-19] MEDS ORDERED: PRED50TA PO (15:57)
[2018-08-19] MEDS ORDERED: BENZ100C PO (15:57)
--- NOTE | 2018-08-19 15:57 | PHYS DOC ---
Past Medical History Past Medical History: Anxiety, Asthma, COPD, Depression, Migraines Additional Past Medical Histor: HEP C, PTSD Past Surgical History: Additional Past Surgical Histo: R ROTATOR CUFF SX Alcohol Use: None Drug Use: None Adult General Chief Complaint Chief Complaint: ASTHMA HPI HPI Patient is a 48 year old female who presents with complaints of a dry cough and shortness of breath since yesterday. Patient states she has a history of COPD and asthma. She felt febrile last night but did not measure her temperature. Patient denies any nausea, vomiting, diarrhea, ear pain, or chest pain. She states that she has had some nasal congestion and a sore throat and addition to her respiratory symptoms. Currently she denies any pain. Review of Systems Review of Systems Constitutional: Reports tactile fever last night Eyes: Denies change in visual acuity, redness, or eye pain reports watery eyes[] HENT: Reports nasal congestion and sore throat [] Respiratory: Reports dry cough and shortness of breath [] Cardiovascular: Denies chest pain GI: Denies abdominal pain, nausea, vomiting, or diarrhea [] Integument: Denies rash or skin lesions [] Neurologic: Denies headache, focal weakness or sensory changes [] All other systems were reviewed and found to be within normal limits, except as documented in this note. Current Medications Current Medications Current Medications Medications (Trade) Dose Ordered Sig/Grazyna Start Time Stop Time Status Last Admin Dose Admin Albuterol Sulfate (Ventolin Neb Soln) 2.5 mg 1X ONCE 08/19/18 15:00 08/19/18 15:01 DC 08/19/18 15:13 2.5 MG Dexamethasone Sodium Phosphate (Decadron) 10 mg 1X ONCE 08/19/18 15:00 08/19/18 15:01 DC 08/19/18 15:03 10 MG Allergies Allergies Allergies Coded Allergies Type Severity Reaction Last Updated Verified aspirin Allergy Intermediate itching, hives 09/24/16 No Physical Exam Physical Exam Constitutional: Well developed, well nourished, no acute distress, non-toxic appearance. [] HENT: Normocephalic, atraumatic, bilateral external ears normal, oropharynx moist, postnasal drainage present with cobblestone appearance of posterior pharynx, mild tenderness with palpation of his, no oral exudates, nose normal. [ ] Eyes: PERRLA, conjunctiva normal, no discharge. [] Neck: Normal range of motion, no tenderness, supple, no stridor. [] Cardiovascular:Heart rate regular rhythm, no murmur [] Lungs & Thorax: Bilateral breath sounds diminished posteriorly with expiratory wheezes scattered throughout Skin: Warm, dry, no erythema, no rash. [] Extremities: No cyanosis, no clubbing, no edema. [] Neurologic: Alert and oriented X 3, normal motor function, normal sensory function, no focal deficits noted. [] Psychologic: Affect normal, judgement normal, mood normal. [] Current Patient Data Vital Signs Vital Signs Date Time Temp Pulse Resp B/P (MAP) Pulse Ox O2 Delivery O2 Flow Rate FiO2 08/19/18 15:14 Room Air 08/19/18 14:57 98.2 97 20 171/79 (109) 99 98.2 EKG EKG [] Radiology/Procedures Radiology/Procedures [] Course & Med Decision Making Course & Med Decision Making Pertinent Labs and Imaging studies reviewed. (See chart for details) Diagnosis: Acute asthma exacerbation, URI Patient was given a breathing treatment in the emergency department 10 mg of by mouth Decadron. Patient's lung sounds improved following the breathing treatment and were clear with occasional scattered wheeze. Patient reports feeling better. Prescription written for Tessalon Perles, albuterol nebulizer vials, and prednisone. Patient verbalized an understanding of home care, medications, follow-up, and return to ED instructions and was in agreement with the plan of care. Staff Physician Addendum: I was working in the ER during the course of this patient's visit. I was available for consultation as needed, but I was not directly involved in the care of this patient. [] Dragon Disclaimer Dragon Disclaimer This electronic medical record was generated, in whole or in part, using a voice recognition dictation system. Departure Departure Impression: Primary Impression: Asthma exacerbation Additional Impression: URI (upper respiratory infection) Disposition: 01 HOME, SELF-CARE Condition: STABLE Referrals: CATE MORRISON (PCP) Patient Instructions: Asthma, Adult, [id number] Additional Instructions: Fill prescription(s) and use as directed. Tylenol or ibuprofen prn pain/fever. Increase clear fluids. Avoid triggers such as smoke, fragrance, dust, and pollen. Follow-up with your primary care doctor next week. Return to the emergency room if your symptoms worsen. Scripts Prednisone (PREDNISONE) 50 Mg Tablet 1 TAB PO DAILY, #5 TAB 0 Refills start this medication on 08/20/18 Prov: STEPHANIE GUEVARA APRN 08/19/18 Albuterol Sulfate (ALBUTEROL SULFATE NEB SOLN) 2.5 Mg/3 Ml Vial.neb 1 VIAL NEB PRN Q4HRS PRN for SHORTNESS OF BREATH, #50 VIAL 0 Refills Prov: STEPHANIE GUEVARA APRN 08/19/18 Benzonatate (TESSALON PERLE) 100 Mg Capsule 1 CAP PO TID, #21 CAP 0 Refills Prov: STEPHANIE GUEVARA APRN 08/19/18 Problem Qualifiers Primary Impression: Asthma exacerbation Asthma severity: mild Asthma persistence: intermittent Qualified Codes: J45.21 - Mild intermittent asthma with (acute) exacerbation Additional Impression: URI (upper respiratory infection) URI type: unspecified URI Qualified Codes: J06.9 - Acute upper respiratory infection, unspecified STEPHANIE GUEVARA APRN Aug 19, 2018 15:57 LUIS ENRIQUE DANG MD Aug 19, 2018 18:00
== END 2018-08-19 16:02 | disposition home or self-care (01) ==
LOC: ER 14:40
DX: J45.901 Unspecified asthma with (acute) exacerbation (principal); J06.9 Acute upper respiratory infection, unspecified; J44.9 Chronic obstructive pulmonary disease, unspecified; G43.909 Migraine, unspecified, not intractable, without status migrainosus; F41.9 Anxiety disorder, unspecified; F32.9 Major depressive disorder, single episode, unspecified; F43.10 Post-traumatic stress disorder, unspecified; Z86.19 Personal history of other infectious and parasitic diseases; Z88.6 Allergy status to analgesic agent
CPT/HCPCS: 94640; 99283; J1100; J7613

== ENCOUNTER 2018-08-28 22:14 | Emergency (ER) | payer OTHER ==
[~2018-08-28] VITALS: Ht 157.5 cm; Wt 74.8 kg
[~2018-08-28 22:14] MED LIST changes: +ALBU2.5V5 NEB
[2018-08-28 22:20] VITALS: BP 154/72
[2018-08-28] MEDS ORDERED: PRED50TA PO (22:42)
--- NOTE | 2018-08-28 22:43 | PHYS DOC ---
Past Medical History Past Medical History: Anxiety, Asthma, COPD, Depression, Migraines Additional Past Medical Histor: HEP C, PTSD Past Surgical History: Additional Past Surgical Histo: R ROTATOR CUFF SX Alcohol Use: None Drug Use: None Adult General Chief Complaint Chief Complaint: ASTHMA HPI HPI Patient is a 48 year old female who presents with asthma exacerbation. Patient states that she took a 50 mg prednisone tablets from an old prescription 2 weeks ago today and did 2 breathing treatments one this morning and one at 4:00 this afternoon. Patient still has mild end expiratory wheezes and says she's just not completely clear. Patient has no acute complaints at this time. Review of Systems Review of Systems Constitutional: Denies fever or chills [] Eyes: Denies change in visual acuity, redness, or eye pain [] HENT: Denies nasal congestion or sore throat [] Respiratory: Denies cough or shortness of breath, positive for wheezes [] Cardiovascular: No additional information not addressed in HPI [] GI: Denies abdominal pain, nausea, vomiting, bloody stools or diarrhea [] : Denies dysuria or hematuria [] Musculoskeletal: Denies back pain or joint pain [] Integument: Denies rash or skin lesions [] Neurologic: Denies headache, focal weakness or sensory changes [] Endocrine: Denies polyuria or polydipsia [] All other systems were reviewed and found to be within normal limits, except as documented in this note. Current Medications Current Medications Current Medications Medications (Trade) Dose Ordered Sig/Grazyna Start Time Stop Time Status Last Admin Dose Admin Albuterol Sulfate (Ventolin Neb Soln) 2.5 mg 1X ONCE 08/28/18 23:00 08/28/18 23:01 DC 08/28/18 22:39 2.5 MG Albuterol/ Ipratropium (Duoneb) 3 ml 1X ONCE 08/28/18 23:30 08/28/18 23:31 DC 08/28/18 23:39 3 ML Allergies Allergies Allergies Coded Allergies Type Severity Reaction Last Updated Verified aspirin Allergy Intermediate itching, hives 09/24/16 No Physical Exam Physical Exam Constitutional: Well developed, well nourished, no acute distress, non-toxic appearance. [] HENT: Normocephalic, atraumatic, bilateral external ears normal, oropharynx moist, no oral exudates, nose normal. [] Eyes: PERRLA, EOMI, conjunctiva normal, no discharge. [] Neck: Normal range of motion, no tenderness, supple, no stridor. [] Cardiovascular:Heart rate regular rhythm, no murmur [] Lungs & Thorax: Bilateral breath sounds with end expiratory wheezes[] Abdomen: Bowel sounds normal, soft, no tenderness, no masses, no pulsatile masses. [] Skin: Warm, dry, no erythema, no rash. [] Back: No tenderness, no CVA tenderness. [] Extremities: No tenderness, no cyanosis, no clubbing, ROM intact, no edema. [] Neurologic: Alert and oriented X 3, normal motor function, normal sensory function, no focal deficits noted. [] Psychologic: Affect normal, judgement normal, mood normal. [] Current Patient Data Vital Signs Vital Signs Date Time Temp Pulse Resp B/P (MAP) Pulse Ox O2 Delivery O2 Flow Rate FiO2 08/28/18 22:20 98.0 83 22 154/72 (99) 98 Room Air 98.0 EKG EKG [] Radiology/Procedures Radiology/Procedures [] Course & Med Decision Making Course & Med Decision Making Pertinent Labs and Imaging studies reviewed. (See chart for details) Patient with improvement after 2 treatments and just requested a work excuse for tomorrow and felt comfortable going home at this time. [] Dragon Disclaimer Dragon Disclaimer This electronic medical record was generated, in whole or in part, using a voice recognition dictation system. Departure Departure Impression: Primary Impression: Asthma exacerbation Disposition: 01 HOME, SELF-CARE Condition: IMPROVED Referrals: CATE MORRISON (PCP) Patient Instructions: Asthma, Adult, [id number] Scripts Prednisone (PREDNISONE) 50 Mg Tablet 1 TAB PO DAILY, #3 TAB Prov: YOSSI MCDOWELL MD 08/28/18 YOSSI MCDOWELL MD Aug 28, 2018 22:43
[2018-08-28] MEDS ORDERED: ALBUTEROL SULFATE 2.5 MG/3 ML NEBU. NEB ONE (23:00)
[2018-08-28] MEDS ORDERED: IPRATRPIUM/ALBUTEROL 0.5/2.5MG 3 ML NEBU. NEB ONE (23:30)
== END 2018-08-29 00:24 | disposition home or self-care (01) ==
LOC: ER 22:14
DX: J45.901 Unspecified asthma with (acute) exacerbation (principal); J44.9 Chronic obstructive pulmonary disease, unspecified; G43.909 Migraine, unspecified, not intractable, without status migrainosus; F43.10 Post-traumatic stress disorder, unspecified; Z88.6 Allergy status to analgesic agent
CPT/HCPCS: 94640; 99284; J7613; J7620

== ENCOUNTER 2018-09-25 09:05 | Emergency (ER) | payer SELFPAY ==
[~2018-09-25] VITALS: Ht 157.5 cm; Wt 74.8 kg
[2018-09-25 09:13] VITALS: BP 156/74
[2018-09-25] MEDS ORDERED: IV NORMAL SALINE 1000ML BAG 1,000 ML IV ONE (09:15)
[2018-09-25] MEDS ORDERED: METOCLOPRAMIDE HCL 10 MG/2 ML VIAL. IV ONE (09:15)
[2018-09-25] MEDS ORDERED: KETOROLAC 30 MG/ML VIAL. IV ONE (09:15)
--- NOTE | 2018-09-25 10:32 | PHYS DOC ---
Past Medical History Past Medical History: Anxiety, Asthma, COPD, Depression, Migraines Additional Past Medical Histor: HEP C, PTSD Past Surgical History: Additional Past Surgical Histo: R ROTATOR CUFF SX Alcohol Use: None Drug Use: None Adult General Chief Complaint Chief Complaint: HEADACHE HPI HPI Patient is a 48 year old female who presents with a headache that has worsened as the day has progressed today. The patient states that she is a chronic migraine sufferer (similar to her normal headaches. She denies loss of vision or paresthesias. She has not taken any of OTC medications. She denies vomiting but does have mild nausea. Review of Systems Review of Systems Constitutional: Denies fever or chills [] Eyes: Denies change in visual acuity, redness, or eye pain [] HENT: Denies nasal congestion or sore throat [] Respiratory: Denies cough or shortness of breath [] Cardiovascular: No additional information not addressed in HPI [] GI: Denies abdominal pain, nausea, vomiting, bloody stools or diarrhea [] : Denies dysuria or hematuria [] Musculoskeletal: Denies back pain or joint pain [] Integument: Denies rash or skin lesions [] Neurologic: See history of present illness Endocrine: Denies polyuria or polydipsia [] All other systems were reviewed and found to be within normal limits, except as documented in this note. Current Medications Current Medications Current Medications Medications (Trade) Dose Ordered Sig/[facility] Start Time Stop Time Status Last Admin Dose Admin Ketorolac Tromethamine (Toradol 30mg Vial) 30 mg 1X ONCE 09/25/18 09:15 09/25/18 09:23 DC 09/25/18 09:38 30 MG Metoclopramide HCl (Reglan Vial) 10 mg 1X ONCE 09/25/18 09:15 09/25/18 09:23 DC 09/25/18 09:38 10 MG Sodium Chloride 1,000 ml @ 1,000 mls/hr 1X ONCE 09/25/18 09:15 09/25/18 10:14 DC 09/25/18 09:37 1,000 MLS/HR Allergies Allergies Allergies Coded Allergies Type Severity Reaction Last Updated Verified aspirin Allergy Intermediate itching, hives 09/24/16 No Physical Exam Physical Exam Constitutional: Well developed, well nourished, no acute distress, non-toxic appearance. [] HENT: Normocephalic, atraumatic, bilateral external ears normal, oropharynx moist, no oral exudates, nose normal. [] Eyes: PERRLA, EOMI, conjunctiva normal, no discharge. [] Neck: Normal range of motion, no tenderness, supple, no stridor. [] Cardiovascular:Heart rate regular rhythm, no murmur [] Lungs & Thorax: Bilateral breath sounds clear to auscultation [] Abdomen: Bowel sounds normal, soft, no tenderness, no masses, no pulsatile masses. [] Skin: Warm, dry, no erythema, no rash. [] Back: No tenderness, no CVA tenderness. [] Extremities: No tenderness, no cyanosis, no clubbing, ROM intact, no edema. [] Neurologic: Alert and oriented X 3, normal motor function, normal sensory function, no focal deficits noted, cranial nerves II through XII are grossly intact. [] Psychologic: Affect normal, judgement normal, mood normal. [] Current Patient Data Vital Signs Vital Signs Date Time Temp Pulse Resp B/P (MAP) Pulse Ox O2 Delivery O2 Flow Rate FiO2 09/25/18 09:13 98.1 74 18 156/74 (101) 97 Room Air 98.1 EKG EKG [] Radiology/Procedures Radiology/Procedures [] Course & Med Decision Making Course & Med Decision Making Pertinent Labs and Imaging studies reviewed. (See chart for details) []The patient was given a bolus of normal saline, Toradol and Reglan in the emergency department with resolution of her headache. Staff Physician Addendum: I was working in the ER during the course of this patient's visit. I was available for consultation as needed, but I was not directly involved in the care of this patient. Dragon Disclaimer Dragon Disclaimer This electronic medical record was generated, in whole or in part, using a voice recognition dictation system. Departure Departure Impression: Primary Impression: Migraine Disposition: 01 HOME, SELF-CARE Condition: STABLE Referrals: CATE MORRISON (PCP) Patient Instructions: Migraine Headache Additional Instructions: The medication you were given may make you sleepy. Continue your at home routine. Do not drive or operate heavy machinery today. Follow-up with your primary care provider for future healthcare needs or return to the emergency department if worsening. CORDELL CHAVEZ [employer] Sep 25, 2018 10:31 LUIS ENRIQUE DANG MD Sep 25, 2018 16:57
== END 2018-09-25 10:40 | disposition home or self-care (01) ==
LOC: ER 09:05
DX: G43.909 Migraine, unspecified, not intractable, without status migrainosus (principal); F41.9 Anxiety disorder, unspecified; F32.9 Major depressive disorder, single episode, unspecified; J44.9 Chronic obstructive pulmonary disease, unspecified; Z98.890 Other specified postprocedural states; Z88.6 Allergy status to analgesic agent
CPT/HCPCS: 96374; 96375; 99284; J1885; J2765; J7030

== ENCOUNTER 2018-10-10 08:27 | Emergency (ER) | payer SELFPAY ==
[~2018-10-10] VITALS: Ht 157.5 cm; Wt 74.8 kg
[~2018-10-10 08:27] MED LIST changes: +HYDR-3164 PO; -HYDR-971 PO
[2018-10-10 08:49] VITALS: BP 153/74
[2018-10-10] MEDS ORDERED: predniSONE 10 MG TABLET PO ONE (09:15)
[2018-10-10] MEDS ORDERED: ALBUTEROL SULFATE 2.5 MG/3 ML NEBU. CONT NEB ONE (09:15)
[2018-10-10] MEDS ORDERED: PRED50TA PO (10:48)
[2018-10-10] MEDS ORDERED: PROAIR HFA8.5 GM INH (10:48)
--- NOTE | 2018-10-10 10:48 | PHYS DOC ---
Past Medical History Past Medical History: Anxiety, Asthma, COPD, Depression, Migraines, Other Additional Past Medical Histor: HEP C, PTSD Past Surgical History: Additional Past Surgical Histo: R ROTATOR CUFF SX Alcohol Use: None Drug Use: None Adult General Chief Complaint Chief Complaint: ASTHMA HPI HPI Patient is a 48 year old [f__sex] who presents with [] Review of Systems Review of Systems Constitutional: Denies fever or chills [] Eyes: Denies change in visual acuity, redness, or eye pain [] HENT: Denies nasal congestion or sore throat [] Respiratory: Denies cough or shortness of breath [] Cardiovascular: No additional information not addressed in HPI [] GI: Denies abdominal pain, nausea, vomiting, bloody stools or diarrhea [] : Denies dysuria or hematuria [] Musculoskeletal: Denies back pain or joint pain [] Integument: Denies rash or skin lesions [] Neurologic: Denies headache, focal weakness or sensory changes [] Endocrine: Denies polyuria or polydipsia [] All other systems were reviewed and found to be within normal limits, except as documented in this note. Current Medications Current Medications Current Medications Medications (Trade) Dose Ordered Sig/Grazyna Start Time Stop Time Status Last Admin Dose Admin Albuterol Sulfate (Ventolin Neb Soln) 10 mg 1X ONCE 10/10/18 09:15 10/10/18 09:16 DC 10/10/18 09:14 10 MG Prednisone (Prednisone) 50 mg 1X ONCE 10/10/18 09:15 10/10/18 09:16 DC 10/10/18 09:16 50 MG Allergies Allergies Allergies Coded Allergies Type Severity Reaction Last Updated Verified aspirin Allergy Intermediate itching, hives 09/24/16 No Physical Exam Physical Exam Constitutional: Well developed, well nourished, no acute distress, non-toxic appearance. [] HENT: Normocephalic, atraumatic, bilateral external ears normal, oropharynx moist, no oral exudates, nose normal. [] Eyes: PERRLA, EOMI, conjunctiva normal, no discharge. [] Neck: Normal range of motion, no tenderness, supple, no stridor. [] Cardiovascular:Heart rate regular rhythm, no murmur [] Lungs & Thorax: Bilateral breath sounds clear to auscultation [] Abdomen: Bowel sounds normal, soft, no tenderness, no masses, no pulsatile masses. [] Skin: Warm, dry, no erythema, no rash. [] Back: No tenderness, no CVA tenderness. [] Extremities: No tenderness, no cyanosis, no clubbing, ROM intact, no edema. [] Neurologic: Alert and oriented X 3, normal motor function, normal sensory function, no focal deficits noted. [] Psychologic: Affect normal, judgement normal, mood normal. [] Current Patient Data Vital Signs Vital Signs Date Time Temp Pulse Resp B/P (MAP) Pulse Ox O2 Delivery O2 Flow Rate FiO2 10/10/18 09:19 98 Room Air 10/10/18 08:49 98.0 78 24 153/74 (100) 98.0 EKG EKG [] Radiology/Procedures Radiology/Procedures [] Course & Med Decision Making Course & Med Decision Making Pertinent Labs and Imaging studies reviewed. (See chart for details) [] Dragon Disclaimer Dragon Disclaimer This electronic medical record was generated, in whole or in part, using a voice recognition dictation system. Departure Departure Impression: Primary Impression: Asthma exacerbation Disposition: 01 HOME, SELF-CARE Condition: STABLE Referrals: CATE MORRISON (PCP) Patient Instructions: Asthma Prevention-Brief Additional Instructions: Take the medication with food. Follow-up with your primary care provider for recheck in 3 days if not improving or return to the emergency department if worsening. Scripts Albuterol Sulfate (PROAIR HFA INHALER) 8.5 Gm Hfa.aer.ad 1 PUFF INH PRN Q6HRS PRN for SHORTNESS OF BREATH, #1 INHALER 3 Refills Prov: CORDELL CHAVEZ APRN 10/10/18 Prednisone (PREDNISONE) 50 Mg Tablet 1 TAB PO DAILY for asthma, #5 TAB Prov: CORDELL CHAVEZ APRN 10/10/18 CORDELL CHAVEZ APRN Oct 10, 2018 10:48
== END 2018-10-10 11:02 | disposition home or self-care (01) ==
LOC: ER 08:27
DX: J45.901 Unspecified asthma with (acute) exacerbation (principal); J44.9 Chronic obstructive pulmonary disease, unspecified; F41.9 Anxiety disorder, unspecified; F32.9 Major depressive disorder, single episode, unspecified; G43.909 Migraine, unspecified, not intractable, without status migrainosus; Z98.890 Other specified postprocedural states; Z88.6 Allergy status to analgesic agent
CPT/HCPCS: 94644; 99285; J7512; J7613; 94640; 99284-25

== ENCOUNTER 2018-11-06 19:55 | Emergency (ER) | payer SELFPAY ==
[~2018-11-06] VITALS: Ht 157.5 cm; Wt 74.8 kg
[~2018-11-06 19:55] MED LIST changes: +ALBU2.5V8 IH; +ALBU2.5V8 INH; -PROAIR HFA8.5 GM IH; -PROAIR HFA8.5 GM INH
[2018-11-06] MEDS ORDERED: ALBUTEROL SULFATE 2.5 MG/3 ML NEBU. NEB ONE (21:00)
[2018-11-06] MEDS ORDERED: DEXAMETHASONE SOD PHOS 20 MG/5 ML VIAL. PO ONE (21:00)
[2018-11-06] MEDS ORDERED: IPRATRPIUM/ALBUTEROL 0.5/2.5MG 3 ML NEBU. NEB ONE (21:00)
[2018-11-06] MEDS ORDERED: DOXY100C14 PO (22:14)
[2018-11-06] MEDS ORDERED: PRED50TA PO (22:14)
--- NOTE | 2018-11-06 22:14 | PHYS DOC ---
Past Medical History Past Medical History: Anxiety, Asthma, COPD, Depression, Hypertension, Migraines, Other Additional Past Medical Histor: HEP C, PTSD Past Surgical History: Additional Past Surgical Histo: R ROTATOR CUFF SX Alcohol Use: None Drug Use: None Adult General Chief Complaint Chief Complaint: SHORTNESS OF BREATH [facility] HPI Patient is a 48 year old female who presents with a complaint of feeling short of breath since 7:30 this morning. She reports a history of asthma and COPD. States that she has tried using her inhaler at home with no relief of her symptoms. She last used her inhaler one hour prior to arrival. She denies any fever, nasal congestion, chest pain, nausea, vomiting, abdominal pain, ear pain , sore throat, or fever. Currently she reports that the pain is in the left ribs and left back and she rates the discomfort a 7 out of 10 on the pain scale. Review of Systems Review of Systems Constitutional: Denies fever or chills [] Eyes: Denies change in visual acuity, HENT: Denies nasal congestion or sore throat [] Respiratory: See history of present illness Cardiovascular: No additional information not addressed in HPI [] GI: Denies abdominal pain, nausea, vomiting, or diarrhea [] Musculoskeletal: See history of present illness Integument: Denies rash or skin lesions [] Neurologic: Denies headache, focal weakness or sensory changes [] All other systems were reviewed and found to be within normal limits, except as documented in this note. Current Medications Current Medications Current Medications Medications (Trade) Dose Ordered Sig/Grazyna Start Time Stop Time Status Last Admin Dose Admin Albuterol Sulfate (Ventolin Neb Soln) 2.5 mg 1X ONCE 11/06/18 21:00 11/06/18 21:01 DC 11/06/18 21:16 2.5 MG Albuterol/ Ipratropium (Duoneb) 3 ml 1X ONCE 11/06/18 21:00 11/06/18 21:01 DC 11/06/18 21:10 3 ML Dexamethasone Sodium Phosphate (Decadron) 10 mg 1X ONCE 11/06/18 21:00 11/06/18 21:01 DC 11/06/18 21:12 10 MG Allergies Allergies Allergies Coded Allergies Type Severity Reaction Last Updated Verified aspirin Allergy Intermediate itching, hives 09/24/16 No Physical Exam Physical Exam Constitutional: Well developed, well nourished, no acute distress, ill appearance. [] HENT: Normocephalic, atraumatic, bilateral external ears normal, bilateral TMs are normal, posterior pharynx is normal, oropharynx moist, no oral exudates, nose normal. [] Eyes: conjunctiva normal, no discharge. [] Neck: Normal range of motion, no tenderness, supple, no stridor. [] Cardiovascular:Heart rate regular rhythm, no murmur [] Lungs & Thorax: Bilateral breath sounds rhonchi with expiratory wheezes and diminished in the bases bilaterally Skin: Warm, dry, no erythema, no rash. [] Extremities: No cyanosis, no clubbing, ROM intact, Neurologic: Alert and oriented X 3, normal motor function, normal sensory function, no focal deficits noted. [] Psychologic: Affect normal, judgement normal, mood normal. [] Current Patient Data Vital Signs Vital Signs Date Time Temp Pulse Resp B/P (MAP) Pulse Ox O2 Delivery O2 Flow Rate FiO2 11/06/18 22:35 85 18 156/87 (110) 98 Room Air 11/06/18 20:20 99.4 99.4 EKG EKG [] Radiology/Procedures Radiology/Procedures bilateral lower lobe pneumonia read by Dr. Lopez[] Breath Sounds were clear in all arvizu with occasional scattered expiratory wheezes after breathing treatment; patient reported feeling better. Staff Physician Addendum: I was working in the ER during the course of this patient's visit. I was available for consultation as needed, but I was not directly involved in the care of this patient. Course & Med Decision Making Course & Med Decision Making Pertinent Labs and Imaging studies reviewed. (See chart for details) [] Dragon Disclaimer Dragon Disclaimer This electronic medical record was generated, in whole or in part, using a voice recognition dictation system. Departure Departure Impression: Primary Impression: CAP (community acquired pneumonia) Disposition: 01 HOME, SELF-CARE Condition: STABLE Referrals: CATE MORRISON (PCP) Patient Instructions: Pneumonia, Adult Additional Instructions: Fill prescription(s) and use as directed. Tylenol or ibuprofen prn pain/fever. Increase clear fluids. Avoid triggers such as smoke, fragrance, dust, and pollen. May take OTC cough suppressants as needed. Follow-up with your primary care doctor next week, return to the ER if her symptoms worsen. Scripts Prednisone (PREDNISONE) 50 Mg Tablet 1 TAB PO DAILY, #4 TAB 0 Refills start taking on 11/07/18 Prov: STEPHANIE GUEVARA APRN 11/06/18 Doxycycline Monohydrate (DOXYCYCLINE MONOHYDRATE) 100 Mg Capsule 1 CAP PO BID, #20 CAP Prov: STEPHANIE GUEVARA APRN 11/06/18 Problem Qualifiers Primary Impression: CAP (community acquired pneumonia) Laterality: unspecified laterality Qualified Codes: J18.9 - Pneumonia, unspecified organism STEPHANIE GUEVARA APRN Nov 06, 2018 22:14 LUIS ENRIQUE LOPEZ MD Nov 07, 2018 05:29
[2018-11-06 22:35] VITALS: BP 156/87
--- NOTE | 2018-11-06 23:43 | RAD ---
Examination: CHEST PA LATERAL History: cough, soa Comparison/Correlation: None Findings: PA and lateral views of chest were obtained. Heart size and pulmonary vasculature are normal. No infiltrate or pleural effusion. Minimal right apical pleural thickening. Osteopenia noted. Impression: No active disease. Electronically signed by: Chapin Amaral MD (11/06/2018 11:39 PM) [facility]
== END 2018-11-06 22:55 | disposition home or self-care (01) ==
LOC: ER 19:55
DX: J18.9 Pneumonia, unspecified organism (principal); J44.9 Chronic obstructive pulmonary disease, unspecified; F41.9 Anxiety disorder, unspecified; F32.9 Major depressive disorder, single episode, unspecified; I10 Essential (primary) hypertension; G43.909 Migraine, unspecified, not intractable, without status migrainosus; F43.10 Post-traumatic stress disorder, unspecified; Z88.6 Allergy status to analgesic agent
CPT/HCPCS: 71046; 94640; 99284; J1100; J7613; J7620

== ENCOUNTER 2019-01-28 18:59 | Emergency (ER) | payer SELFPAY ==
[~2019-01-28] VITALS: Ht 165.1 cm; Wt 86.2 kg
[~2019-01-28 18:59] MED LIST changes: +AMLO5TAB10 PO; -AMLO5TAB7 PO; +DOXY100C14 PO
[2019-01-28 19:19] VITALS: BP 158/81
[2019-01-28 19:47] LABS: BILIRUBIN,URINE SMALL (NEG); CLARITY,URINE CLOUDY; COLOR,URINE YELLOW; NITRITE,URINE POSITIVE (NEG); PH,URINE 5.5; PROTEIN,URINE 30 mg/dL (NEG-TRACE)
[2019-01-28 20:04] LABS: BACTERIA,URINE MANY /HPF (0-FEW); HYALINE CASTS, URINE MANY /HPF; SQUAMOUS EPITHELIAL CELL,UR MOD /LPF; WBC,URINE >40 /HPF (0-4)
[2019-01-28 20:56] LABS: CALCIUM 8.9 mg/dL (8.5-10.1); CREATININE 0.6 mg/dL (0.6-1.0); GFR 105.8; POTASSIUM 3.8 mmol/L (3.5-5.1)
--- NOTE | 2019-01-28 20:59 | RAD ---
EXAM: AP View of the chest DATE: 01/28/2019 8:12 PM INDICATION: S/P EDEMA COMPARISON: 11/06/2018, 03/25/2017 FINDINGS: The heart is top normal in size. No lobar consolidation. Bilateral interstitial prominence is seen. Trace right pleural effusion. No pneumothorax. IMPRESSION: Trace right pleural effusion with interstitial prominence possibly pulmonary edema. Alternatively atypical infection may have similar appearance. Electronically signed by: Dewayne Johansen MD (01/28/2019 8:56 PM) [facility]
[2019-01-28 21:02] LABS: ALBUMIN 3.2 g/dL (3.4-5.0); ALBUMIN/GLOBULIN RATIO 0.8 (1.0-1.7); TOTAL BILIRUBIN 0.2 mg/dL (0.2-1.0); TOTAL PROTEIN 7.2 g/dL (6.4-8.2)
[2019-01-28 21:22] LABS: BASO # 0.1 x10^3/uL (0.0-0.2); BASO % 1 % (0-3); EOS # 0.7 x10^3/uL (0.0-0.7); EOS % 10 % (0-3); HEMATOCRIT 31.5 % (36.0-47.0); HEMOGLOBIN 9.9 g/dL (12.0-15.5); LYMPH % 26 % (24-48); MEAN CORPUSCULAR HEMOGLOBIN 22 pg (25-35); MEAN CORPUSCULAR HGB CONC 32 g/dL (31-37); MEAN CORPUSCULAR VOLUME 69 fL (79-100); MONO # 0.5 x10^3/uL (0.0-1.1); MONO % 7 % (0-9); NEUT # 4.3 x10^3uL (1.8-7.7); NEUT % 57 % (31-73); PLATELET COUNT 252 x10^3/uL (140-400); RED CELL DISTRIBUTION WIDTH 20.9 % (11.5-14.5); WHITE BLOOD COUNT 7.6 x10^3/uL (4.0-11.0)
[2019-01-28 21:51] LABS: MICROCYTOSIS MOD; OVALOCYTES OCC; PLT ESTIMATE ADEQUATE (ADEQUATE); POLYCHROMASIA SLIGHT; TARGET CELLS OCC
[2019-01-28] MEDS ORDERED: SULF1TAB24 PO (22:53)
--- NOTE | 2019-01-28 22:53 | PHYS DOC ---
Past Medical History Past Medical History: Anxiety, Asthma, COPD, Depression, Hypertension, Migraines, Other Additional Past Medical Histor: HEP C, PTSD Past Surgical History: Additional Past Surgical Histo: R ROTATOR CUFF SX Alcohol Use: None Drug Use: None Adult General Chief Complaint Chief Complaint: HYPERTENSION HPI HPI Patient is a 48-year-old female who presents to the emergency room for evaluation of elevated blood pressure. Patient states that she had called EMS for complaints of shortness of breath earlier today and had been given a DuoNeb treatment for asthma. She states that at the time symptoms had improved. She states that her blood pressure had been 128/100 by EMS earlier and they stated that she needed to follow-up on her blood pressure. Patient arrives this evening with concerns about her blood pressure and also states that her hands were tingling. She denies any chest pain and currently has no shortness of breath. Review of Systems Review of Systems Constitutional: Denies fever or chills [] Respiratory: Denies cough or shortness of breath [] Cardiovascular: No additional information not addressed in HPI [] GI: Denies abdominal pain, nausea, vomiting or diarrhea [] Neurologic: Denies headache, focal weakness or sensory changes [] All other systems were reviewed and found to be within normal limits, except as documented in this note. Current Medications Current Medications Current Medications Medications (Trade) Dose Ordered Sig/Grazyna Start Time Stop Time Status Last Admin Dose Admin Trimethoprim/ Sulfamethoxazole (Bactrim Ds) 1 tab 1X ONCE 01/28/19 23:30 01/28/19 23:30 DC Allergies Allergies Allergies Coded Allergies Type Severity Reaction Last Updated Verified aspirin Allergy Intermediate itching, hives 09/24/16 No Physical Exam Physical Exam Constitutional: Well developed, well nourished, no acute distress, non-toxic appearance. [] HENT: Normocephalic, atraumatic, bilateral external ears normal, oropharynx moist, no oral exudates, nose normal. [] Eyes: PERRLA, EOMI, conjunctiva normal, no discharge. [] Neck: Normal range of motion, no tenderness, supple, no stridor. [] Cardiovascular: Regular rate and rhythm[] Lungs & Thorax: Bilateral breath sounds clear to auscultation [] Abdomen: Bowel sounds normal, soft, no tenderness. [] Skin: Warm, dry, no erythema, no rash. [] Extremities: No tenderness, no cyanosis, no clubbing, ROM intact, no edema. [] Neurologic: Alert and oriented X 3, no focal deficits noted. [] Current Patient Data Vital Signs Vital Signs Date Time Temp Pulse Resp B/P (MAP) Pulse Ox O2 Delivery O2 Flow Rate FiO2 01/28/19 19:19 86 18 01/28/19 19:14 98.7 100 98.7 01/28/19 19:08 158/81 (106) Room Air Lab Values Laboratory Tests Test 01/28/19 19:08 01/28/19 19:21 01/28/19 20:35 01/28/19 21:15 Urine Collection Type Void Urine Color Yellow Urine Clarity Cloudy Urine pH 5.5 Urine Specific [place] >=1.030 Urine Protein 30 mg/dL (NEG-TRACE) Urine Glucose (UA) Negative mg/dL (NEG) Urine Ketones (Stick) Negative mg/dL (NEG) Urine Blood Small (NEG) Urine Nitrite Positive (NEG) Urine Bilirubin Small (NEG) Urine Urobilinogen Dipstick 1.0 mg/dL (0.2 mg/dL) Urine Leukocyte Esterase Moderate (NEG) Urine RBC 11-20 /HPF (0-2) Urine WBC >40 /HPF (0-4) Urine Squamous Epithelial Cells Mod /LPF Urine Bacteria Many /HPF (0-FEW) Urine Hyaline Casts Many /HPF Urine Mucus Mod /LPF POC Urine HCG, Qualitative Hcg negative (Negative) Sodium Level 140 mmol/L (136-145) Potassium Level 3.8 mmol/L (3.5-5.1) Chloride Level 105 mmol/L (98-107) Carbon Dioxide Level 24 mmol/L (21-32) Anion Gap 11 (6-14) Blood Urea Nitrogen 11 mg/dL (7-20) Creatinine 0.6 mg/dL (0.6-1.0) Estimated GFR (Cockcroft-Gault) 105.8 BUN/Creatinine Ratio 18 (6-20) Glucose Level 91 mg/dL (70-99) Calcium Level 8.9 mg/dL (8.5-10.1) Total Bilirubin 0.2 mg/dL (0.2-1.0) Aspartate Amino Transferase (AST) 25 U/L (15-37) Alanine Aminotransferase (ALT) 22 U/L (14-59) Alkaline Phosphatase 69 U/L (46-116) MB-Kxg-Q-Type Natriuretic Peptide 182 pg/mL (0-124) H Total Protein 7.2 g/dL (6.4-8.2) Albumin 3.2 g/dL (3.4-5.0) L Albumin/Globulin Ratio 0.8 (1.0-1.7) L White Blood Count 7.6 x10^3/uL (4.0-11.0) Red Blood Count 4.60 x10^6/uL (3.50-5.40) Hemoglobin 9.9 g/dL (12.0-15.5) L Hematocrit 31.5 % (36.0-47.0) L Mean Corpuscular Volume 69 fL (79-100) L Mean Corpuscular Hemoglobin 22 pg (25-35) L Mean Corpuscular Hemoglobin Concent 32 g/dL (31-37) Red Cell Distribution Width 20.9 % (11.5-14.5) H Platelet Count 252 x10^3/uL (140-400) Neutrophils (%) (Auto) 57 % (31-73) Lymphocytes (%) (Auto) 26 % (24-48) Monocytes (%) (Auto) 7 % (0-9) Eosinophils (%) (Auto) 10 % (0-3) H Basophils (%) (Auto) 1 % (0-3) Neutrophils # (Auto) 4.3 x10^3uL (1.8-7.7) Lymphocytes # (Auto) 2.0 x10^3/uL (1.0-4.8) Monocytes # (Auto) 0.5 x10^3/uL (0.0-1.1) Eosinophils # (Auto) 0.7 x10^3/uL (0.0-0.7) Basophils # (Auto) 0.1 x10^3/uL (0.0-0.2) Platelet Estimate Adequate (ADEQUATE) Large Platelets Occ Polychromasia Slight Microcytosis Mod Target Cells Occ Ovalocytes Occ Laboratory Tests 01/28/19 21:15 Laboratory Tests 01/28/19 20:35 EKG EKG [] Radiology/Procedures Radiology/Procedures [] Impressions: PROCEDURE: CHEST AP ONLY EXAM: AP View of the chest DATE: 01/28/2019 8:12 PM INDICATION: S/P EDEMA COMPARISON: 11/06/2018, 03/25/2017 FINDINGS: The heart is top normal in size. No lobar consolidation. Bilateral interstitial prominence is seen. Trace right pleural effusion. No pneumothorax. IMPRESSION: Trace right pleural effusion with interstitial prominence possibly pulmonary edema. Alternatively atypical infection may have similar appearance. Electronically signed by: Dewayne Johansen MD (01/28/2019 8:56 PM) [facility] Course & Med Decision Making Course & Med Decision Making Pertinent Labs and Imaging studies reviewed. (See chart for details) [] Dragon Disclaimer Dragon Disclaimer This electronic medical record was generated, in whole or in part, using a voice recognition dictation system. Departure Departure Impression: Primary Impression: Essential hypertension Additional Impression: UTI (urinary tract infection) Disposition: 01 HOME, SELF-CARE Condition: STABLE Referrals: CATE MORRISON (PCP) Patient Instructions: Hypertension, Urinary Tract Infection Scripts Sulfamethoxazole/Trimethoprim (BACTRIM DS TABLET) 1 Each Tablet 1 TAB PO BID, #14 TAB Prov: MADAN GOEL Jr. DO 01/28/19 Problem Qualifiers Additional Impression: UTI (urinary tract infection) Urinary tract infection type: site unspecified Hematuria presence: without hematuria Qualified Codes: N39.0 - Urinary tract infection, site not specified MADAN GOEL Jr. DO Jan 28, 2019 22:53
[2019-01-28] MEDS ORDERED: SMZ/TMP 800/160MG TABLET. PO ONE (23:30)
== END 2019-01-28 23:10 | disposition home or self-care (01) ==
LOC: ER 18:59
DX: I10 Essential (primary) hypertension (principal); N39.0 Urinary tract infection, site not specified; R20.2 Paresthesia of skin; J90 Pleural effusion, not elsewhere classified; F41.9 Anxiety disorder, unspecified; J44.9 Chronic obstructive pulmonary disease, unspecified; F32.9 Major depressive disorder, single episode, unspecified; G43.909 Migraine, unspecified, not intractable, without status migrainosus; Z98.890 Other specified postprocedural states; Z88.6 Allergy status to analgesic agent
CPT/HCPCS: 36415; 71045; 80053; 81001; 81025; 83880; 85025; 87086; 87186; 99284-25

== ENCOUNTER 2019-02-14 21:17 | Inpatient (IN) | payer SELFPAY ==
[~2019-02-14] VITALS: Ht 162.6 cm; Wt 86.2 kg
[2019-02-14] MEDS ORDERED: IPRATRPIUM/ALBUTEROL 0.5/2.5MG 3 ML NEBU. ONE (21:24)
[2019-02-14] MEDS ORDERED: IPRATRPIUM/ALBUTEROL 0.5/2.5MG 3 ML NEBU. NEB ONE ×3 (21:30→22:00)
--- NOTE | 2019-02-14 21:30 | PHYS DOC ---
Past Medical History Past Medical History: Anxiety, Asthma, COPD, Depression, Hypertension, Migraines, Other Additional Past Medical Histor: HEP C, PTSD Past Surgical History: Additional Past Surgical Histo: R ROTATOR CUFF SX Alcohol Use: None Drug Use: None Adult General Chief Complaint Chief Complaint: SHORTNESS OF BREATH HPI HPI Patient is a 48 year old female presented to the ER today for evaluation of shortness of air and nonproductive cough for about 1 week. Her symptoms got worse tonight. Patient denied any fever. She has history of COPD AND ASTHMA. She stopped smoking 5 years ago. She is not on any oxygen at home. She denied any chest pain. NO abdominal pain, no headache, no neck pain. Review of Systems Review of Systems Constitutional: Denies fever or chills [] Eyes: Denies change in visual acuity, redness, or eye pain [] HENT: Denies nasal congestion or sore throat [] Respiratory: POSITIVE FOR cough AND shortness of breath [] Cardiovascular: No additional information not addressed in HPI [] GI: Denies abdominal pain, nausea, vomiting, bloody stools or diarrhea [] : Denies dysuria or hematuria [] Musculoskeletal: Denies back pain or joint pain [] Integument: Denies rash or skin lesions [] Neurologic: Denies headache, focal weakness or sensory changes [] Endocrine: Denies polyuria or polydipsia [] All other systems were reviewed and found to be within normal limits, except as documented in this note. Current Medications Current Medications Current Medications Medications (Trade) Dose Ordered Sig/Grazyna Start Time Stop Time Status Last Admin Dose Admin Albuterol/ Ipratropium (Duoneb) 3 ml 1X ONCE 02/14/19 21:30 02/14/19 21:40 DC 02/14/19 21:30 3 ML Methylprednisolone Sodium Succinate (SOLU-Medrol 125MG VIAL) 125 mg 1X ONCE 02/14/19 22:00 02/14/19 22:01 DC 02/15/19 00:29 125 MG Allergies Allergies Allergies Coded Allergies Type Severity Reaction Last Updated Verified aspirin Allergy Intermediate itching, hives 09/24/16 No Physical Exam Physical Exam Constitutional: Well developed, well nourished, IN MILD acute distress, non- toxic appearance. [] HENT: Normocephalic, atraumatic, bilateral external ears normal, oropharynx moist, no oral exudates, nose normal. [] Eyes: PERRLA, EOMI, conjunctiva normal, no discharge. [] Neck: Normal range of motion, no tenderness, supple, no stridor. [] Cardiovascular:Heart rate regular rhythm, no murmur [] Lungs & Thorax: Decreased Bilateral breath sounds , WITH WHEEZING DIFFUSELLY, TACHYPNIC. Abdomen: Bowel sounds normal, soft, no tenderness, no masses, no pulsatile masses. [] Skin: Warm, dry, no erythema, no rash. [] Back: No tenderness, no CVA tenderness. [] Extremities: No tenderness, no cyanosis, no clubbing, ROM intact, no edema. [] Neurologic: Alert and oriented X 3, normal motor function, normal sensory function, no focal deficits noted. [] Psychologic: Affect normal, judgement normal, mood normal. [] Current Patient Data Vital Signs Vital Signs Date Time Temp Pulse Resp B/P (MAP) Pulse Ox O2 Delivery O2 Flow Rate FiO2 02/14/19 22:55 76 18 195/89 (124) 100 Room Air 02/14/19 22:12 97.6 2.0 97.6 Lab Values Laboratory Tests Test 02/14/19 22:00 02/14/19 22:56 White Blood Count 9.9 x10^3/uL (4.0-11.0) Red Blood Count 4.77 x10^6/uL (3.50-5.40) Hemoglobin 10.4 g/dL (12.0-15.5) L Hematocrit 32.6 % (36.0-47.0) L Mean Corpuscular Volume 68 fL (79-100) L Mean Corpuscular Hemoglobin 22 pg (25-35) L Mean Corpuscular Hemoglobin Concent 32 g/dL (31-37) Red Cell Distribution Width 20.5 % (11.5-14.5) H Platelet Count 307 x10^3/uL (140-400) Neutrophils (%) (Auto) 51 % (31-73) Lymphocytes (%) (Auto) 28 % (24-48) Monocytes (%) (Auto) 9 % (0-9) Eosinophils (%) (Auto) 12 % (0-3) H Basophils (%) (Auto) 1 % (0-3) Neutrophils # (Auto) 5.0 x10^3uL (1.8-7.7) Lymphocytes # (Auto) 2.8 x10^3/uL (1.0-4.8) Monocytes # (Auto) 0.8 x10^3/uL (0.0-1.1) Eosinophils # (Auto) 1.2 x10^3/uL (0.0-0.7) H Basophils # (Auto) 0.1 x10^3/uL (0.0-0.2) Platelet Estimate Adequate (ADEQUATE) Hypochromasia Mod Poikilocytosis Slight Anisocytosis Mod Microcytosis Mod Ovalocytes Few Sodium Level 136 mmol/L (136-145) Potassium Level 3.5 mmol/L (3.5-5.1) Chloride Level 101 mmol/L (98-107) Carbon Dioxide Level 27 mmol/L (21-32) Anion Gap 8 (6-14) Blood Urea Nitrogen 7 mg/dL (7-20) Creatinine 0.5 mg/dL (0.6-1.0) L Estimated GFR (Cockcroft-Gault) 130.6 BUN/Creatinine Ratio 14 (6-20) Glucose Level 108 mg/dL (70-99) H Calcium Level 8.5 mg/dL (8.5-10.1) Total Bilirubin 0.3 mg/dL (0.2-1.0) Aspartate Amino Transferase (AST) 22 U/L (15-37) Alanine Aminotransferase (ALT) 20 U/L (14-59) Alkaline Phosphatase 86 U/L (46-116) Creatine Kinase 213 U/L (26-192) H Creatine Kinase MB (Mass) 3.5 ng/mL (0.0-3.6) Creatine Kinase MB Relative Index 1.6 % (0-4) Troponin I Quantitative 0.038 ng/mL (0.000-0.055) [id number]-Type Natriuretic Peptide 207 pg/mL (0-124) H Total Protein 7.5 g/dL (6.4-8.2) Albumin 3.4 g/dL (3.4-5.0) Albumin/Globulin Ratio 0.8 (1.0-1.7) L O2 Saturation 97 % (92-99) Arterial Blood pH 7.41 (7.35-7.45) Arterial Blood pCO2 at Patient Temp 38 mmHg (35-46) Arterial Blood pO2 at Patient Temp 102 mmHg (75-108) Arterial Blood HCO3 23 mmol/L (21-28) Arterial Blood Base Excess -1 mmol/L (-3-3) FiO2 28 Laboratory Tests 02/14/19 22:00 Laboratory Tests 02/14/19 22:00 EKG EKG ekg : [] Radiology/Procedures Radiology/Procedures chest xray: NO ACUTE DISEASE[] Course & Med Decision Making Course & Med Decision Making Pertinent Labs and Imaging studies reviewed. (See chart for details) [] Dragon Disclaimer Dragon Disclaimer This electronic medical record was generated, in whole or in part, using a voice recognition dictation system. Departure Departure Impression: Primary Impression: COPD exacerbation Disposition: ADMITTED INPATIENT Admitting Physician: Tova Allan Condition: IMPROVED Referrals: CATE MORRISON (PCP) MARIEL MOON DO Feb 14, 2019 21:30
[2019-02-14] MEDS ORDERED: methylPREDNISolone SOD SUCC PF 125 MG/2 ML VIAL. IV ONE (22:00)
[2019-02-14 22:11] LABS: BASO # 0.1 x10^3/uL (0.0-0.2); BASO % 1 % (0-3); EOS # 1.2 x10^3/uL (0.0-0.7); EOS % 12 % (0-3); HEMATOCRIT 32.6 % (36.0-47.0); HEMOGLOBIN 10.4 g/dL (12.0-15.5); LYMPH # 2.8 x10^3/uL (1.0-4.8); LYMPH % 28 % (24-48); MEAN CORPUSCULAR HEMOGLOBIN 22 pg (25-35); MEAN CORPUSCULAR HGB CONC 32 g/dL (31-37); MEAN CORPUSCULAR VOLUME 68 fL (79-100); MONO # 0.8 x10^3/uL (0.0-1.1); MONO % 9 % (0-9); NEUT % 51 % (31-73); PLATELET COUNT 307 x10^3/uL (140-400); RED BLOOD COUNT 4.77 x10^6/uL (3.50-5.40); RED CELL DISTRIBUTION WIDTH 20.5 % (11.5-14.5); WHITE BLOOD COUNT 9.9 x10^3/uL (4.0-11.0)
[2019-02-14 22:21] LABS: CALCIUM 8.5 mg/dL (8.5-10.1); CREATININE 0.5 mg/dL (0.6-1.0); GFR 130.6; POTASSIUM 3.5 mmol/L (3.5-5.1)
[2019-02-14 22:27] LABS: ALBUMIN 3.4 g/dL (3.4-5.0); ALBUMIN/GLOBULIN RATIO 0.8 (1.0-1.7); TOTAL BILIRUBIN 0.3 mg/dL (0.2-1.0); TOTAL PROTEIN 7.5 g/dL (6.4-8.2)
--- NOTE | 2019-02-14 22:30 | RAD ---
Single view chest dated 02/14/2019: Comparison made to 01/28/2019. Clinical Indication: Shortness of breath and wheezing.. Findings: Single upright portable exam of the chest was performed. Heart size and mediastinal contours are within normal limits given technique. The lungs are clear without evidence of focal consolidation. Vascular interstitium is within normal limits. Impression:: Negative portable chest. Electronically signed by: Chad Franklin MD (02/14/2019 10:27 PM) [facility]
[2019-02-14 22:47] LABS: ANISOCYTOSIS MOD; HYPOCHROMIA MOD; MICROCYTOSIS MOD; OVALOCYTES FEW; PLT ESTIMATE ADEQUATE (ADEQUATE); POIKILOCYTOSIS SLIGHT
[2019-02-14] MEDS ORDERED: ACETAMINOPHEN 325 MG TABLET. PO PRN (23:15)
[2019-02-14] MEDS ORDERED: ONDANSETRON PF 4 MG/2 ML VIAL. IV PRN (23:15)
[2019-02-14 23:18] LABS: BASE EXCESS ABG -1 mmol/L (-3-3); HCO3 ABG 23 mmol/L (21-28); PCO2 ABG 38 mmHg (35-46); PO2 ABG 102 mmHg (75-108); SAT O2 ABG 97 % (92-99)
[2019-02-14 23:21] LABS: FIO2 ABG 28
[2019-02-14] MEDS ORDERED: IV NORMAL SALINE 1000ML BAG 1,000 ML IV SCH (23:30)
[2019-02-15 00:17] VITALS: BP 158/105
--- NOTE | 2019-02-15 00:49 | NUR ---
Pt.just arrived from ED via bed w/ COPD exacerbation. She is A/O x4 and will make needs known. Family @ BS.
[2019-02-15 03:05] VITALS: BP 155/96
[2019-02-15 07:00] VITALS: BP 154/85
--- NOTE | 2019-02-15 07:49 | EKG ---
[facility] [address] [place] [address] Test Date: 2019-02-14 Test Time: 21:34:51 Pat Name: WILDA EDMONDS Department: Room: [facility] Gender: F [employer]: : 1970 Requested By: MARIEL MOON Order Number: [id number] Reading MD: Cosmo Black MD Measurements Intervals [place] Rate: 89 P: 57 [place]: 156 QRS: 1 QRSD: 86 T: 39 QT: 386 QTc: 470 Interpretive Statements SINUS RHYTHM PROLONGED QT Electronically Signed On 02-15-2019 14:48:12 CDT by Cosmo Black MD
[2019-02-15] MEDS ORDERED: IPRATRPIUM/ALBUTEROL 0.5/2.5MG 3 ML NEBU. NEB SCH (08:00)
--- NOTE | 2019-02-15 09:53 | NUR ---
Patient signed out against medical advice for personal reasons. I explained to her the need to stay, and told her if she needs care she can always come back to ER. She had all of her personal belongings and stated understanding of the reason she had to sign against medical advice. She was escorted by myself to ER parking area where her son was waiting to take her home.
== END 2019-02-15 09:47 | disposition left against medical advice (07) | DRG 192 ==
LOC: ER 21:17 → 5 NORTH 23:10
PROVIDERS: ADMIT Internal Medicine; ATTEND Internal Medicine
DX: J44.1 Chronic obstructive pulmonary disease with (acute) exacerbation (principal); I10 Essential (primary) hypertension; F43.10 Post-traumatic stress disorder, unspecified; F32.9 Major depressive disorder, single episode, unspecified; F41.9 Anxiety disorder, unspecified; G43.909 Migraine, unspecified, not intractable, without status migrainosus; Z53.21 Procedure and treatment not carried out due to patient leaving prior to being seen by health care provider; Z79.899 Other long term (current) drug therapy; Z88.8 Allergy status to other drugs, medicaments and biological substances; Z87.891 Personal history of nicotine dependence
CPT/HCPCS: 36415; 36600; 71045; 80053; 82550; 82553; 82805; 83880; 84484; 85025; 93005; 94640; J2930; J7030; J7620; 99285-25

== ENCOUNTER 2019-08-25 17:51 | Emergency (ER) | payer OTHER ==
[2019-08-25] MEDS ORDERED: IPRATRPIUM/ALBUTEROL 0.5/2.5MG 3 ML NEBU. NEB ONE ×2 (18:15→19:15)
[2019-08-25] MEDS ORDERED: predniSONE 10 MG TABLET PO ONE (18:15)
--- NOTE | 2019-08-25 18:47 | PHYS DOC ---
Past Medical History Past Medical History: Anxiety, Asthma, COPD, Depression, Hypertension, Mi graines, Other Additional Past Medical Histor: HEP C, PTSD Past Surgical History: Additional Past Surgical Histo: R ROTATOR CUFF SX Alcohol Use: None Drug Use: None Adult General Chief Complaint Chief Complaint: ASTHMA HPI HPI Patient is a 49 year old female who presents with shortness of air, cough, chest tightness for the last 2 days. Patient states she has a history of COPD and asthma and hypertension. Patient states she's been using her inhaler and her nebulizer at home and is not helping. Patient denies any pain. Review of Systems Review of Systems Respiratory: cough or shortness of breath [] Cardiovascular: Tightness All other systems were reviewed and found to be within normal limits, except as documented in this note. Current Medications Current Medications Current Medications Medications (Trade) Dose Ordered Sig/Grazyna Start Time Stop Time Status Last Admin Dose Admin Albuterol/ Ipratropium (Duoneb) 3 ml 1X ONCE 08/25/19 19:15 08/25/19 19:16 DC 08/25/19 19:24 3 ML Prednisone (Prednisone) 50 mg 1X ONCE 08/25/19 18:15 08/25/19 18:16 DC 08/25/19 18:30 50 MG Allergies Allergies Allergies Coded Allergies Type Severity Reaction Last Updated Verified aspirin Allergy Intermediate itching, hives 09/24/16 No Physical Exam Physical Exam Constitutional: Well developed, well nourished, no acute distress, non-toxic appearance. [] HENT: Normocephalic, atraumatic, bilateral external ears normal, oropharynx moist, no oral exudates, nose normal. [] Eyes: PERRLA, EOMI, conjunctiva normal, no discharge. [] Cardiovascular:Heart rate regular rhythm, no murmur [] Lungs & Thorax: Bilateral breath sounds diminished with inspiratory and expiratory wheezes to auscultation [] Skin: Warm, dry, no erythema, no rash. [] Neurologic: Alert and oriented X 3, normal motor function, normal sensory function, no focal deficits noted. [] Psychologic: Affect normal, judgement normal, mood normal. [] Current Patient Data Vital Signs Vital Signs Date Time Temp Pulse Resp B/P (MAP) Pulse Ox O2 Delivery O2 Flow Rate FiO2 08/25/19 19:25 Room Air EKG EKG [] Radiology/Procedures Radiology/Procedures [] Impressions: [id number] [place] [address] IMAGING REPORT Signed PATIENT: WILDA EDMONDS GACCOUNT: [id number] : 1970 LOCATION: ER AGE: 49 SEX: F EXAM STATUS: REG ER ORD. PHYSICIAN: MARY SAVAGE APRN REASON: soa PROCEDURE: CHEST PA & LATERAL CHEST PA LATERAL History: Shortness of breath Comparison: February 13, 2019 Findings: Patchy left basilar opacity, similar compared to prior. No pleural effusion. Normal heart size. No pneumothorax. Impression: 1. Patchy left basilar opacity, may represent atelectasis or consolidation. Recommend follow-up. Electronically signed by: Denilson Burgos DO (08/25/2019 7:24 PM) [facility] DICTATED and SIGNED BY: DENILSON BURGOS DO DATE: 08/25/191923 Course & Med Decision Making Course & Med Decision Making Patient is a 49 year old female who presents with shortness of air, cough, chest tightness for the last 2 days. Patient states she has a history of COPD and asthma and hypertension. Patient states she's been using her inhaler and her nebulizer at home and is not helping. Patient denies any pain. Patient lungs are diminished but with excellent inspiratory and expiratory wheezes throughout all lobes. She speaks in full clear sentences. Skin is pink warm and dry. Patient denies chest pain, nausea, vomiting, fever, syncope, dizziness, abdominal pain, diarrhea. Patient is 99% on room air, 80 heart rate, 20 resp irations. Chest xray shows 1. Patchy left basilar opacity, may represent atelectasis or consolidation. Recommend follow-up. After 2 breathing treatments patient's lungs are clearer patient is breathing easier. Patient has good air movement. Patient states she is feeling better. Dragon Disclaimer Dragon Disclaimer This electronic medical record was generated, in whole or in part, using a voice recognition dictation system. Departure Departure Impression: Primary Impression: Asthma exacerbation Disposition: HOME, SELF-CARE Condition: STABLE Referrals: YOAKAM,CATE D (PCP) Patient Instructions: Asthma Prevention-Brief, Asthma, Adult Additional Instructions: Follow up with primary care provider. Take medications as prescribed. Scripts Doxycycline Hyclate (DOXYCYCLINE HYCLATE) 100 Mg Capsule 1 CAP PO BID, #14 CAP Prov: MARY SAVAGE APRN 08/25/19 Methylprednisolone (MEDROL) 4 Mg Tab.ds.pk 1 PKG PO UD, #1 PKG Prov: MARY SAVAGE APRN 08/25/19 Albuterol Sulfate (PROAIR HFA INHALER) 8.5 Gm Hfa.aer.ad 1 PUFF INH PRN Q6HRS PRN for SHORTNESS OF BREATH, #1 INHALER 0 Refills Prov: MARY SAVAGE APRN 08/25/19 Problem Qualifiers Primary Impression: Asthma exacerbation Asthma severity: mild Asthma persistence: intermittent Qualified Codes: J45.21 - Mild intermittent asthma with (acute) exacerbation MARY SAVAGE APRN Aug 25, 2019 18:47
--- NOTE | 2019-08-25 19:27 | RAD ---
CHEST PA LATERAL History: Shortness of breath Comparison: February 13, 2019 Findings: Patchy left basilar opacity, similar compared to prior. No pleural effusion. Normal heart size. No pneumothorax. Impression: 1. Patchy left basilar opacity, may represent atelectasis or consolidation. Recommend follow-up. Electronically signed by: Denilson Burgos DO (08/25/2019 7:24 PM) [facility]
[2019-08-25] MEDS ORDERED: ALBU2.5V8 INH (19:53)
[2019-08-25] MEDS ORDERED: METH4TAB2 PO (19:53)
[2019-08-25] MEDS ORDERED: DOXY100C2 PO (19:53)
== END 2019-08-25 19:58 | disposition home or self-care (01) ==
LOC: ER 17:51
DX: J44.9 Chronic obstructive pulmonary disease, unspecified (principal); J45.21 Mild intermittent asthma with (acute) exacerbation; I10 Essential (primary) hypertension; G43.909 Migraine, unspecified, not intractable, without status migrainosus; F41.9 Anxiety disorder, unspecified; Z88.6 Allergy status to analgesic agent
CPT/HCPCS: 71046; 94640; 99284; J7512; J7620

== ENCOUNTER 2019-10-03 16:30 | Emergency (ER) | payer OTHER ==
[~2019-10-03] VITALS: Ht 157.5 cm; Wt 86.2 kg
[~2019-10-03 16:30] MED LIST changes: +DOXY100C2 PO; +METH4TAB2 PO
[2019-10-03 17:10] VITALS: BP 143/67
--- NOTE | 2019-10-03 18:25 | RAD ---
HAND RIGHT 3V Clinical Indication: Injury, pain. Comparison: None. Findings: No acute fracture or dislocation. Question mild dorsal soft tissue swelling overlying the metacarpal heads. Mild joint space narrowing and marginal osteophytes of the third DIP. There is severe joint space narrowing and marginal osteophyte formation and subchondral lucencies of the second MCP joint. No periarticular bony erosion of this joint is identified to suggest a septic joint. The mineralization appears normal. IMPRESSION: 1. No acute fracture. 2. Severe joint space narrowing second MCP. Electronically signed by: Maikel Harris MD (10/03/2019 6:22 PM) [facility]
[2019-10-03] MEDS ORDERED: HYDR-3164 PO (18:45)
--- NOTE | 2019-10-03 18:45 | PHYS DOC ---
Past Medical History Past Medical History: Anxiety, Asthma, COPD, Depression, Hypertension, Mi graines, Other Additional Past Medical Histor: HEP C, PTSD Past Surgical History: Additional Past Surgical Histo: R ROTATOR CUFF SX Alcohol Use: None Drug Use: None Adult General Chief Complaint Chief Complaint: HAND PROBLEM HPI HPI Patient is a 49 year old female who presents with Patient states one month ago she hurt her right index finger when it got caught in a machine. Patient states since then she has a lot of pain with putting pressure on the finger tip and trying to bend it. Patient states the pain will radiate into her hand and rates her pain a 8/10. Review of Systems Review of Systems Musculoskeletal: Right index finger pain. Denies back pain or joint pain [] All other systems were reviewed and found to be within normal limits, except as documented in this note. Allergies Allergies Allergies Coded Allergies Type Severity Reaction Last Updated Verified aspirin Allergy Intermediate itching, hives 09/24/16 No Physical Exam Physical Exam Constitutional: Well developed, well nourished, no acute distress, non-toxic appearance. [] Skin: Warm, dry, no erythema, no rash. [] Extremities: Right finger tip tenderness, no cyanosis, no clubbing, ROM intact, 1+ whole finger edema. [] Neurologic: Alert and oriented X 3, normal motor function, normal sensory function, no focal deficits noted. [] Psychologic: Affect normal, judgement normal, mood normal. [] Current Patient Data Vital Signs Vital Signs Date Time Temp Pulse Resp B/P (MAP) Pulse Ox O2 Delivery O2 Flow Rate FiO2 10/03/19 17:10 98.6 86 16 143/67 (92) 99 Room Air 98.6 EKG EKG [] Radiology/Procedures Radiology/Procedures [] Impressions: [facility] [address] [place], [place] [id number] IMAGING REPORT Signed PATIENT: WILDA EDMONDS GACCOUNT: [id number] : 1970 LOCATION: ER AGE: 49 SEX: F EXAM STATUS: REG ER ORD. PHYSICIAN: MARY SAVAGE APRN REASON: Injuru, pain PROCEDURE: HAND RIGHT 3V HAND RIGHT 3V Clinical Indication: Injury, pain. Comparison: None. Findings: No acute fracture or dislocation. Question mild dorsal soft tissue swelling overlying the metacarpal heads. Mild joint space narrowing and marginal osteophytes of the third DIP. There is severe joint space narrowing and marginal osteophyte formation and subchondral lucencies of the second MCP joint. No periarticular bony erosion of this joint is identified to suggest a septic joint. The mineralization appears normal. IMPRESSION: 1. No acute fracture. 2. Severe joint space narrowing second MCP. Electronically signed by: Maikel Harris MD (10/03/2019 6:22 PM) [facility] DICTATED and SIGNED BY: MAIKEL HARRIS MD DATE: 10/03/191821 Course & Med Decision Making Course & Med Decision Making Patient states one month ago she hurt her right index finger when it got caught in a machine. Patient states since then she has a lot of pain with putting pressure on the finger tip and trying to bend it. Patient states the pain will radiate into her hand and rates her pain a 8/10. 1 plus swelling, No joint laxity. Patient can not bend the joint fully due to pain. Denies numbness or tingling. No swelling in the joints. No redness or deformity. Radial pulse is present. Skin pink warm and dry. Cap refill < 3 seconds. Xray show IMPRESSION: 1. No acute fracture. 2. Severe joint space narrowing second MCP. I will refer the patient to Orthopedics. Dragon Disclaimer Brian Disclaimer This electronic medical record was generated, in whole or in part, using a voice recognition dictation system. Departure Departure Impression: Primary Impression: Finger pain, right Disposition: 01 HOME, SELF-CARE Condition: STABLE Referrals: CATE MORRISON (PCP) CRISTOPHER SCHMITT MD Patient Instructions: Arthritis, Degenerative-Brief Additional Instructions: Follow up with orthopedics. Take medication as prescribed. Scripts Hydrocodone/Apap 5-325 (NORCO 5-325 TABLET) 1 Each Tablet 1 TAB PO PRN Q6HRS PRN for PAIN, #10 TAB 0 Refills Prov: MARY SAVAGE APRN 10/03/19 MARY SAVAGE APRN Oct 03, 2019 18:45
== END 2019-10-03 18:50 | disposition home or self-care (01) ==
LOC: ER 16:30
DX: M79.644 Pain in right finger(s) (principal); F41.9 Anxiety disorder, unspecified; J44.9 Chronic obstructive pulmonary disease, unspecified; I10 Essential (primary) hypertension; G43.909 Migraine, unspecified, not intractable, without status migrainosus; F32.9 Major depressive disorder, single episode, unspecified; F43.10 Post-traumatic stress disorder, unspecified; Z88.6 Allergy status to analgesic agent
CPT/HCPCS: 73130; 99284